=== PATIENT | female | born 1945 | race Caucasian/White ===

== ENCOUNTER 2016-06-25 11:59 | Emergency (ER) | payer MEDICARE, OTHER ==
--- NOTE | 2016-06-25 12:22 | ER Document Report ---
ED Medical Screen (RME) - General Chief Complaint: Urinary Retention Stated Complaint: URINARY SYMPTOMS Mode of Arrival: Ambulatory Information source: Patient Notes: 71-year-old female presents with complaints of nausea vomiting diarrhea generalized weakness urinary retention cough shortness of breath of a few day duration. Patient was seen at an urgent care and was sent in for evaluation. I have greeted and performed a rapid initial assessment of this patient. A comprehensive ED assessment and evaluation of the patient, analysis of test results and completion of the medical decision making process will be conducted by additional ED providers. PHYSICAL EXAMINATION: GENERAL: Well-appearing, well-nourished and in no acute distress. HEAD: Atraumatic, normocephalic. EYES: Pupils equal round extraocular movements intact, conjunctiva are normal. ENT: Nares patent NECK: Normal range of motion LUNGS: No respiratory distress Musculoskeletal: Normal range of motion NEUROLOGICAL: Normal speech, normal gait. PSYCH: Normal mood, normal affect. SKIN: Warm, Dry, normal turgor, no rashes or lesions noted. TRAVEL OUTSIDE OF THE [place] IN LAST 30 DAYS: No - Related Data Allergies/Adverse Reactions: metal Allergy (Severe, Uncoded 06/25/16 12:05) rash Past Medical History - Past Medical History Cardiac Medical History: Reports: Hx Hypercholesterolemia, Hx Hypertension - on meds Denies: Hx Coronary Artery Disease, Hx Heart Attack Pulmonary Medical History: Reports: Hx COPD - inhalers Denies: Hx Asthma, Hx Bronchitis, Hx Pneumonia Neurological Medical History: Denies: Hx Cerebrovascular Accident, Hx Seizures Renal/ Medical History: Denies: Hx Peritoneal Dialysis GI Medical History: Denies: Hx Hepatitis, Hx Hiatal Hernia, Hx Ulcer Musculoskeltal Medical History: Reports Hx Arthritis Infectious Medical History: Denies: Hx Hepatitis Past Surgical History: Denies: Hx Hysterectomy, Hx Mastectomy, Hx Open Heart Surgery - Immunizations Hx Diphtheria, Pertussis, Tetanus Vaccination: No Physical Exam - Vital signs Vitals: Temp Pulse Resp BP Pulse Ox 98.8 F 100 18 139/92 H 97 06/25/16 12:06 06/25/16 12:06 06/25/16 12:06 06/25/16 12:06 06/25/16 12:06 Course - Vital Signs Vital signs: Temp Pulse Resp BP Pulse Ox 98.8 F 100 18 139/92 H 97 06/25/16 12:06 06/25/16 12:06 06/25/16 12:06 06/25/16 12:06 06/25/16 12:06
[2016-06-25 13:02] LABS: ABSOLUTE MONOCYTES (AUTO) 0.5 10^3/uL (0.1-1.4); BASOPHILS % (AUTO) 0.2 % (0-2); EOSINOPHILS % (AUTO) 0.1 % (0-6); HEMATOCRIT 38.5 % (36.0-47.0); HGB HCT DIFFERENCE 0.5; LYMPHOCYTES % (AUTO) 15.1 % (13-45); MEAN CORPUSCULAR HEMOGLOBIN 29.2 pg (27.0-33.4); MEAN CORPUSCULAR HGB CONC 33.9 g/dL (32.0-36.0); MEAN CORPUSCULAR VOLUME 86 fl (80-97); MONOCYTES % (AUTO) 8.3 % (3-13); RED BLOOD COUNT 4.47 10^6/uL (3.72-5.28); RED CELL DISTRIBUTION WIDTH 14.8 % (11.5-14.0); SEGMENTED NEUTROPHILS % (AUTO) 76.3 % (42-78); WHITE BLOOD COUNT 6.6 10^3/uL (4.0-10.5)
--- NOTE | 2016-06-25 13:07 | ER Document Report ---
ED General - General Chief Complaint: Urinary Retention Stated Complaint: URINARY SYMPTOMS Mode of Arrival: Ambulatory Information source: Patient Notes: 71-year-old female that presents today with the onset 2 days ago of runny nose, congestion, cough, sneezing, and diarrhea. Patient states yesterday she had "a lot" of diarrhea. She cannot give me a specific number. She denies any nausea or vomiting. She denies any blood in the diarrhea. She denies any recent antibiotics, camping, trips or travel. Patient also complains of some mild sore throat and some pain in her left ear. Patient went to an urgent care and told them that she did not urinate since yesterday. She was unable to produce urine at the facility. Garsia catheter was ordered in triage. Patient denies any flank pain, history of urinary retention, or dysuria. TRAVEL OUTSIDE OF THE [place] IN LAST 30 DAYS: No - HPI Onset: Other Onset/Duration: Gradual Quality of pain: No pain Severity: Mild Pain Level: Denies Associated symptoms: Other - See above Exacerbated by: denies: Food Relieved by: Denies Similar symptoms previously: No Recently seen / treated by doctor: Yes - Related Data Allergies/Adverse Reactions: metal Allergy (Severe, Uncoded 06/25/16 12:05) rash Past Medical History - General Information source: Patient - Social History Smoking Status: Unknown if Ever Smoked Cigarette use (# per day): No Chew tobacco use (# tins/day): No Smoking Education Provided: No Frequency of alcohol use: None Drug Abuse: None Family History: Reviewed & Not Pertinent Patient has suicidal ideation: No Patient has homicidal ideation: No - Past Medical History Cardiac Medical History: Reports: Hx Hypercholesterolemia, Hx Hypertension - on meds Denies: Hx Coronary Artery Disease, Hx Heart Attack Pulmonary Medical History: Reports: Hx COPD - inhalers Denies: Hx Asthma, Hx Bronchitis, Hx Pneumonia Neurological Medical History: Denies: Hx Cerebrovascular Accident, Hx Seizures Renal/ Medical History: Denies: Hx Peritoneal Dialysis GI Medical History: Denies: Hx Hepatitis, Hx Hiatal Hernia, Hx Ulcer Musculoskeltal Medical History: Reports Hx Arthritis Infectious Medical History: Denies: Hx Hepatitis Past Surgical History: Denies: Hx Hysterectomy, Hx Mastectomy, Hx Open Heart Surgery - Immunizations Hx Diphtheria, Pertussis, Tetanus Vaccination: No Hx Pneumococcal Vaccination: 12/13/14 Review of Systems - Review of Systems Constitutional: denies: Fever EENT: Nose congestion, Nose discharge, Throat pain. denies: Eye discharge Respiratory: Cough. denies: Short of breath Gastrointestinal: Diarrhea. denies: Nausea, Vomiting Genitourinary: denies: Dysuria Musculoskeletal: denies: Leg swelling Skin: Other - no hives. denies: Rash Neurological/Psychological: Other - no slurred speech -: Yes All other systems reviewed and negative Physical Exam - Vital signs Vitals: Temp Pulse Resp BP Pulse Ox 98.8 F 100 18 139/92 H 97 06/25/16 12:06 06/25/16 12:06 06/25/16 12:06 06/25/16 12:06 06/25/16 12:06 Notes: Reviewed vital signs and nursing note as charted by RN. CONSTITUTIONAL: Alert and oriented and responds appropriately to questions. Well -appearing; well-nourished HEAD: Normocephalic; atraumatic EYES: Sclerae non-icteric ENT: Positive rhinorrhea; moist mucous membranes; pharynx minimally erythematous without any obvious peritonsillar exudate, with a midline uvula. NECK: Supple without meningismus; non-tender; no cervical lymphadenopathy, no masses CARD: Regular rate and rhythm; no murmurs, no clicks, no rubs, no gallops; symmetric distal pulses RESP: Normal chest excursion without splinting or tachypnea; breath sounds clear and equal bilaterally; no wheezes, no rhonchi, no rales ABD/GI: Normal bowel sounds; non-distended; soft, non-tender to deep palpation of all 4 quadrants of the abdomen, no rebound, no guarding; no palpable organomegaly or masses BACK: The back appears normal and is non-tender to palpation, there is no CVA tenderness EXT: Normal ROM in all joints; non-tender to palpation; no cyanosis, no effusions, no edema SKIN: Normal color for age and race; warm; dry; good turgor; capillary refill < 2 seconds; no acute lesions noted NEURO: Moves all extremities equally; Motor and sensory function intact PSYCH: The patient's mood and manner are appropriate. Grooming and personal hygiene are appropriate. Course - Re-evaluation Re-evalutation: 06/25/16 13:06 Given the history and physical examination I will order basic labs, obtain a urinalysis, obtain an x-ray of the chest and an influenza screening. Patient's lungs are clear to auscultation bilaterally. She is actually no tenderness of the objectively or subjectively to the abdomen. Patient has had no vomiting, with multiple bouts of nonbloody diarrhea that she has not taken any recent antibiotics or has not taken any travel out of the country. I believe C. difficile, acute appendicitis, abdominal obstruction, all to be extremely unlikely. 06/25/16 14:43 Chest x-ray shows normal heart, normal mediastinum, no fractures, normal lung bautista, no pneumothorax. 06/25/16 14:17 Labs as recorded. Patient still denies any and all abdominal pain. AST and ALT are slightly elevated. Normal bilirubin level. Patient does not have a gallbladder. We will provide a second liter of fluid. No obvious urinary tract infection present. Normal white blood cell count. Patient has received a second liter of fluid. Patient still denies any abdominal pain. X-ray of the chest and labs as recorded. Patient will be discharged home with strict return precautions and follow-up with primary care physician. Patient has no history of urinary obstruction and we will discontinue the Garsia catheter and try a voiding challenge. - Vital Signs Vital signs: Temp Pulse Resp BP Pulse Ox 98.8 F 100 18 139/92 H 97 06/25/16 12:06 06/25/16 12:06 06/25/16 12:06 06/25/16 12:06 06/25/16 12:06 - Laboratory Result Diagrams: 06/25/16 12:30 06/25/16 12:30 Laboratory results interpreted by me: 06/25/16 06/25/16 06/25/16 12:30 12:30 12:58 RDW 14.8 H Sodium 136.4 L Chloride 95 L AST 202 H ALT 259 H Creatine Kinase 138 H Total Protein 8.5 H Urine Protein 100 H Urine Ketones 80 H Urine Blood SMALL H Discharge - Discharge Clinical Impression: Nasal congestion, Cough Diarrhea Qualifiers: Diarrhea type: unspecified type Qualified Code(s): R19.7 - Diarrhea, unspecified Condition: Good Disposition: HOME, SELF-CARE Additional Instructions: Come back immediately for any worsening diarrhea, pain, lightheadedness, dizziness, fever, or any other acute problems. Please follow-up with your primary provider as we have discussed.
[2016-06-25 13:19] LABS: ALANINE AMINOTRANSFERASE 259 U/L (9-52); ALBUMIN 4.9 g/dL (3.5-5.0); ALKALINE PHOSPHATASE 80 U/L (38-126); ANION GAP 17 (5-19); ASPARTATE AMINO TRANSFERASE 202 U/L (14-36); BILIRUBIN,DIRECT 0.4 mg/dL (0.0-0.4); BILIRUBIN,TOTAL 0.7 mg/dL (0.2-1.3); BLOOD UREA NITROGEN 16 mg/dL (7-20); CALCIUM 9.6 mg/dL (8.4-10.2); CARBON DIOXIDE 24 mmol/L (22-30); CHLORIDE 95 mmol/L (98-107); CREATINE KINASE 138 U/L (30-135); CREATININE RESULT 0.68 mg/dL (0.52-1.25); GLUCOSE 91 mg/dL (75-110); POTASSIUM 3.7 mmol/L (3.6-5.0); SODIUM 136.4 mmol/L (137-145); TOTAL PROTEIN 8.5 g/dL (6.3-8.2)
[2016-06-25 13:21] LABS: APPEARANCE,URINE SLIGHTLY-CLOUDY; BILIRUBIN,URINE NEGATIVE (NEGATIVE); GLUCOSE, URINE NEGATIVE (NEGATIVE); KETONES,URINE 80 mg/dL (NEGATIVE); LEUKOCYTE ESTERASE,URINE NEGATIVE (NEGATIVE); NITRITE,URINE NEGATIVE (NEGATIVE); PROTEIN,URINE 100 mg/dL (NEGATIVE); URINE SPECIFIC GRAVITY 1.023; UROBILINOGEN,URINE NEGATIVE mg/dL (<2.0)
[2016-06-25 13:31] LABS: CREATINE KINASE MB 0.88 ng/mL (<4.55); TROPONIN I 0.033 ng/mL
[2016-06-25] MEDS ORDERED: NORMAL SALINE 1000 ML 1,000 ML IV ONE (14:17)
[2016-06-25 15:08] VITALS: BP 165/88
== END 2016-06-25 16:05 | disposition home or self-care (01) ==
LOC: ER 11:59
DX: R05 Cough (principal); R19.7 Diarrhea, unspecified; R09.81 Nasal congestion; R33.9 Retention of urine, unspecified; R06.7 Sneezing; J02.9 Acute pharyngitis, unspecified; H92.02 Otalgia, left ear; I10 Essential (primary) hypertension; J44.9 Chronic obstructive pulmonary disease, unspecified; J34.89 Other specified disorders of nose and nasal sinuses; R74.0 Nonspecific elevation of levels of transaminase and lactic acid dehydrogenase [LDH]; Z90.49 Acquired absence of other specified parts of digestive tract; Z91.048 Other nonmedicinal substance allergy status
CPT/HCPCS: 36415; 51702; 71020; 80053; 81001; 82550; 82553; 84484; 85025; 87070; 87804; 87880; 99283

== ENCOUNTER → 2016-07-04 | Outpatient (CLI) | payer MEDICARE, OTHER | LOC: OD 11:09 | PROVIDERS: ATTEND Obstetrics & Gynecology | DX: J18.9 Pneumonia, unspecified organism (principal); J20.9 Acute bronchitis, unspecified | CPT/HCPCS: 71020 ==

== ENCOUNTER → 2016-08-21 | Outpatient (CLI) | payer MEDICARE, OTHER ==
--- NOTE | 2016-08-21 16:02 | WOMENS IMAGING REPORT ---
EXAM DESCRIPTION: BILAT SCREENING MAMMO W/CAD COMPLETED DATE/TIME: 08/21/2016 11:34 am REASON FOR STUDY: Z12.31, ROUTINE SCREENING MAMMO Z12.31 ENCNTR SCREEN MAMMOGRAM FOR MALIGNANT NEOP LASM OF MALGORZATA COMPARISON: Multiple since 2008 TECHNIQUE: Standard craniocaudal and mediolateral oblique views of each breast recorded using [employer] l acquisition. LIMITATIONS: None. FINDINGS: Findings present which are benign by mammographic criteria. No suspicious masses, calcifi cations or architectural distortion. Pertinent benign findings: Stable benign breast nodules since 2008 Read with the assistance of CAD. .[facility] - R2 Cenova Version 1.3 .[facility] - R2 Cenova Version 1.3 .[facility] - R2 Cenova Version 2.4 .[facility] - R2 Cenova Version 2.4 .[facility] - R2 [employer] Version 9.2 Benign mammographic findings may include one or more of the following: Smooth masses, popcorn/rim/co arse calcifications, asymmetries, post-procedure changes, and lesions with long-standing stability. IMPRESSION: BENIGN MAMMOGRAPHIC FINDINGS. BIRADS 2 BREAST DENSITY: a. The breasts are almost entirely fatty. BIRAD: 2 BENIGN FINDING(S) RECOMMENDATION: ROUTINE SCREENING COMMENT: The patient has been notified of the results by letter per SA requirements. Additional no tification policies are in place for contacting patient with suspicious or incomplete findings. Quality ID #225: The [employer] recommends an annual screening mammogram for women aged 40 years or over. This facility utilizes a reminder system to ensure that all patients receive reminder letters, and/or direct phone calls for appointments. This includes reminders for routine scr eening mammograms, diagnostic mammograms, or other Breast Imaging Interventions when appropriate. Th is patient will be placed in the appropriate reminder system. The [employer] (ACR) has developed recommendations for screening MRI of the breast s in certain patient populations, to be used in conjunction with mammography. Breast MRI surveillanc e may be appropriate for women with more than 20% lifetime risk of developing breast cancer as deter mined by genetic testing, significant family history of the disease, or history of mantle radiation f or Hodgkins Disease. ACR Practice Guidelines 2008. TECHNICAL DOCUMENTATION: FINDING NUMBER: (1) ASSESSMENT: (1) JOB ID: [id number] [employer]- All Rights Reserved
== END ==
LOC: WI 11:21
PROVIDERS: ATTEND Obstetrics & Gynecology
DX: Z12.31 Encounter for screening mammogram for malignant neoplasm of breast (principal)
CPT/HCPCS: 77067; G0202

== ENCOUNTER → 2016-11-22 | Outpatient (CLI) | payer MEDICARE, OTHER ==
[2016-11-22 10:47] LABS: ABSOLUTE EOSINOPHILS # (AUTO) 0.2 10^3/uL (0.0-0.6); ABSOLUTE LYMPHOCYTES (AUTO) 1.8 10^3/uL (0.5-4.7); ABSOLUTE MONOCYTES (AUTO) 0.6 10^3/uL (0.1-1.4); ABSOLUTE NEUT (AUTO) 5.6 10^3/uL (1.7-8.2); BASOPHILS % (AUTO) 0.4 % (0-2); EOSINOPHILS % (AUTO) 1.9 % (0-6); HEMATOCRIT 27.1 % (36.0-47.0); HEMOGLOBIN 9.5 g/dL (12.0-15.5); HGB HCT DIFFERENCE 1.4; LYMPHOCYTES % (AUTO) 21.5 % (13-45); MEAN CORPUSCULAR HEMOGLOBIN 30.3 pg (27.0-33.4); MEAN CORPUSCULAR HGB CONC 35.2 g/dL (32.0-36.0); MEAN CORPUSCULAR VOLUME 86 fl (80-97); MONOCYTES % (AUTO) 7.9 % (3-13); RED BLOOD COUNT 3.15 10^6/uL (3.72-5.28); RED CELL DISTRIBUTION WIDTH 14.9 % (11.5-14.0); SEGMENTED NEUTROPHILS % (AUTO) 68.3 % (42-78); WHITE BLOOD COUNT 8.2 10^3/uL (4.0-10.5)
[2016-11-22 10:58] LABS: ALANINE AMINOTRANSFERASE 31 U/L (9-52); ALBUMIN 3.7 g/dL (3.5-5.0); ALKALINE PHOSPHATASE 83 U/L (38-126); ANION GAP 11 (5-19); ASPARTATE AMINO TRANSFERASE 24 U/L (14-36); BILIRUBIN,DIRECT 0.3 mg/dL (0.0-0.4); BILIRUBIN,TOTAL 0.4 mg/dL (0.2-1.3); BLOOD UREA NITROGEN 14 mg/dL (7-20); CALCIUM 9.6 mg/dL (8.4-10.2); CARBON DIOXIDE 26 mmol/L (22-30); CHLORIDE 97 mmol/L (98-107); GLUCOSE 83 mg/dL (75-110); POTASSIUM 4.1 mmol/L (3.6-5.0); SODIUM 133.7 mmol/L (137-145)
[2016-11-22 10:59] LABS: TOTAL PROTEIN 6.7 g/dL (6.3-8.2)
--- NOTE | 2016-11-22 12:14 | RADIOLOGY REPORT (SQ) ---
EXAM DESCRIPTION: HIP RIGHT AP/LATERAL COMPLETED DATE/TIME: 11/22/2016 10:58 am REASON FOR STUDY: PAIN IN UNSPECIFIED HIP M25.559 PAIN IN UNSPECIFIED HIP COMPARISON: None. NUMBER OF VIEWS: Two views. TECHNIQUE: AP pelvis and additional frog-leg view of the right hip. LIMITATIONS: None. FINDINGS: MINERALIZATION: Normal. RIGHT HIP: Right hip arthroplasty in good position. No acute fracture. LEFT HIP: Left hip arthroplasty in good position. No acute fracture. PUBIS AND ISCHIUM: No fracture. PELVIS: No fracture. SACRUM: No fracture or dislocation. No worrisome bone lesions. LOWER LUMBAR SPINE: Lower lumbar disc changes are present. SOFT TISSUES: No findings. OTHER: No other significant finding. IMPRESSION: Lumbar degenerative disc changes with no acute abnormality in the right hip. TECHNICAL DOCUMENTATION: JOB ID: [id number] [email or web address]- All Rights Reserved
== END ==
LOC: OD 10:07
PROVIDERS: ATTEND Obstetrics & Gynecology
DX: M25.551 Pain in right hip (principal); Z96.641 Presence of right artificial hip joint
CPT/HCPCS: 36415; 80053; 85025

== ENCOUNTER → 2017-01-16 | Outpatient (CLI) | payer MEDICARE, OTHER ==
[2017-01-16 15:28] LABS: ABSOLUTE EOSINOPHILS # (AUTO) 0.3 10^3/uL (0.0-0.6); ABSOLUTE LYMPHOCYTES (AUTO) 1.9 10^3/uL (0.5-4.7); ABSOLUTE MONOCYTES (AUTO) 0.6 10^3/uL (0.1-1.4); ABSOLUTE NEUT (AUTO) 4.4 10^3/uL (1.7-8.2); BASOPHILS % (AUTO) 0.3 % (0-2); EOSINOPHILS % (AUTO) 4.1 % (0-6); HEMOGLOBIN 11.7 g/dL (12.0-15.5); HGB HCT DIFFERENCE 1.1; LYMPHOCYTES % (AUTO) 26.4 % (13-45); MEAN CORPUSCULAR HEMOGLOBIN 28.8 pg (27.0-33.4); MEAN CORPUSCULAR HGB CONC 34.3 g/dL (32.0-36.0); MEAN CORPUSCULAR VOLUME 84 fl (80-97); MONOCYTES % (AUTO) 8.4 % (3-13); RED BLOOD COUNT 4.04 10^6/uL (3.72-5.28); RED CELL DISTRIBUTION WIDTH 15.2 % (11.5-14.0); SEGMENTED NEUTROPHILS % (AUTO) 60.8 % (42-78); WHITE BLOOD COUNT 7.3 10^3/uL (4.0-10.5)
[2017-01-16 15:50] LABS: ALANINE AMINOTRANSFERASE 30 U/L (9-52); ALKALINE PHOSPHATASE 92 U/L (38-126); ANION GAP 16 (5-19); ASPARTATE AMINO TRANSFERASE 19 U/L (14-36); BILIRUBIN,DIRECT 0.3 mg/dL (0.0-0.4); BILIRUBIN,TOTAL 0.3 mg/dL (0.2-1.3); BLOOD UREA NITROGEN 10 mg/dL (7-20); CALCIUM 9.6 mg/dL (8.4-10.2); CARBON DIOXIDE 28 mmol/L (22-30); CHLORIDE 94 mmol/L (98-107); CREATININE RESULT 0.65 mg/dL (0.52-1.25); GLUCOSE 118 mg/dL (75-110); SODIUM 137.6 mmol/L (137-145)
[2017-01-16 15:58] LABS: POTASSIUM 2.9 mmol/L (3.6-5.0)
== END ==
LOC: OD 14:48
PROVIDERS: ATTEND Obstetrics & Gynecology
DX: K52.9 Noninfective gastroenteritis and colitis, unspecified (principal)
CPT/HCPCS: 36415; 80053; 85025; 87324

== ENCOUNTER 2017-01-30 18:44 | Emergency (ER) | payer MEDICARE, OTHER ==
[2017-01-30] MEDS ORDERED: OXYCODONE-ACETAMINOPHEN 5-325 MG TABLET PO ONE (19:26)
[2017-01-30] MEDS ORDERED: DIPH/PERTUSS(ACELL)/TETANUS VAC/PF 0.5 ML SYR (>=10YO) IM ONE (19:27)
--- NOTE | 2017-01-30 19:28 | ER Document Report ---
HPI - HPI Patient complains to provider of: Hand injury Onset: This evening Onset/Duration: Sudden Quality of pain: Sharp Pain Level: 4 Context: Patient states she was walking and misstepped placing her foot off the curb causing her to fall landing on her right side. Patient states she hit her hand on the ground injuring her right hand. Patient does report abrasions to the right upper extremity. Patient denies any loss of consciousness, nausea or vomiting. Associated Symptoms: Other - Right hand pain. denies: Headache, Nausea, Vomiting Exacerbated by: Movement Relieved by: Denies Similar symptoms previously: No Recently seen / treated by doctor: No - ROS ROS below otherwise negative: Yes Systems Reviewed and Negative: Yes All other systems reviewed and negative - NEURO Neurology: DENIES: Headache, Weakness - GASTROINTESTINAL Gastrointestinal: DENIES: Nausea, Patient vomiting - MUSCULOSKELETAL Musculoskeletal: REPORTS: Extremity pain - Right hand - DERM Skin Color: Ecchymosis Skin Problems: Abrasion Past Medical History - General Information source: Patient - Social History Smoking Status: Never Smoker Frequency of alcohol use: Occasional Drug Abuse: None Lives with: Spouse/Significant other Family History: Reviewed & Not Pertinent - Past Medical History Cardiac Medical History: Reports: Hx Hypercholesterolemia, Hx Hypertension - on meds Denies: Hx Coronary Artery Disease, Hx Heart Attack Pulmonary Medical History: Reports: Hx COPD - inhalers Denies: Hx Asthma, Hx Bronchitis, Hx Pneumonia Neurological Medical History: Denies: Hx Cerebrovascular Accident, Hx Seizures Renal/ Medical History: Denies: Hx Peritoneal Dialysis GI Medical History: Denies: Hx Hepatitis, Hx Hiatal Hernia, Hx Ulcer Musculoskeltal Medical History: Reports Hx Arthritis Infectious Medical History: Denies: Hx Hepatitis Past Surgical History: Reports: Hx Orthopedic Surgery. Denies: Hx Hysterectomy , Hx Mastectomy, Hx Open Heart Surgery - Immunizations Hx Diphtheria, Pertussis, Tetanus Vaccination: No Hx Pneumococcal Vaccination: 12/13/14 Vertical Provider Document - CONSTITUTIONAL Agree With Documented VS: Yes Exam Limitations: No Limitations General Appearance: WD/WN, No Apparent Distress - INFECTION CONTROL TRAVEL OUTSIDE OF THE [place] IN LAST 30 DAYS: No - HEENT HEENT: Atraumatic, Normal ENT Exam, Normocephalic, PERRLA - NECK Neck: Normal Inspection, Supple Notes: No posterior cervical tenderness - RESPIRATORY Respiratory: Breath Sounds Normal, No Respiratory Distress O2 Sat by Pulse Oximetry: 100 - CARDIOVASCULAR Cardiovascular: Regular Rate, Regular Rhythm Pulses: Normal: Radial, Dorsalis pedis - MUSCULOSKELETAL/EXTREMETIES Musculoskeletal/Extremeties: MAEW, Tender - Right hand tenderness over right second through fifth metacarpal, no obvious edema or deformity, Eccymosis - Ecchymosis to posterior aspect of right forearm and right humerus with overlying abrasion - NEURO Level of Consciousness: Awake, Alert, Appropriate Motor/Sensory: No Motor Deficit - DERM Integumentary: Warm, Dry Course - Vital Signs Vital signs: Temp Pulse Resp BP Pulse Ox 99.0 F 78 20 147/87 H 100 01/30/17 19:01 01/30/17 19:01 01/30/17 19:01 01/30/17 19:01 01/30/17 19:01 - Diagnostic Test Radiology reviewed: Image reviewed, Reports reviewed Procedures - Immobilization Right Hand Pre-Proc Neuro Vasc Exam: Normal Immobilizer type: Other - corey Performed by: PCT Post-Proc Neuro Vasc Exam: Normal Alignment checked and good: Yes Discharge - Discharge Clinical Impression: Elevated blood pressure reading, Abrasion Fracture, metacarpal Qualifiers: Encounter type: initial encounter Metacarpal bone: unspecified metacarpal Fracture type: closed Metacarpal location: unspecified portion of metacarpal Fracture morphology: unspecified fracture morphology Qualified Code(s): S62.309A - Unspecified fracture of unspecified metacarpal bone, initial encounter for closed fracture Condition: Stable Disposition: HOME, SELF-CARE Instructions: Abrasions ([facility]), Fractured Metacarpal ([facility]), Ice & Elevation ([facility] ), Splint Precautions ([facility]), Tetanus Immunization Given ([facility]) Additional Instructions: Return immediately for any new or worsening symptoms Followup with your primary care provider, call tomorrow to make a followup appointment Follow-up with orthopedic hand specialist for further evaluation, call tomorrow for an appointment Take your pain medication that you have at home as prescribed Forms: Elevated Blood Pressure Referrals: PALAK PUENTE MD [Primary Care Provider] - Follow up as needed BRITTNEY MEDEIROS DO [ACTIVE STAFF] - Follow up in 3-5 days
--- NOTE | 2017-01-30 20:03 | RADIOLOGY REPORT (SQ) ---
EXAM DESCRIPTION: HAND RIGHT 3 VIEWS COMPLETED DATE/TIME: 01/30/2017 7:40 pm REASON FOR STUDY: FOOSH COMPARISON: None. EXAM PARAMETERS: NUMBER OF VIEWS: Three views. TECHNIQUE: AP, lateral and oblique radiographic images acquired of the right hand. LIMITATIONS: None. FINDINGS: MINERALIZATION: Osteopenia. BONES: Mildly displaced oblique fractures through the 3rd and 4th metacarpals. Bones otherwise appea r to be intact. JOINTS: Osteoarthritis most severely affecting the 1st CMC joint. No apparent dislocation. SOFT TISSUES: Associated soft tissue swelling. Chondrocalcinosis TFCC. OTHER: No other significant finding. IMPRESSION: 3RD AND 4TH METACARPAL FRACTURES WITH ASSOCIATED SOFT TISSUE SWELLING. ADDITIONAL CHRONIC CHANGES ABOVE. TECHNICAL DOCUMENTATION: JOB ID: [id number] [employer]- All Rights Reserved
[2017-01-30 21:13] VITALS: BP 134/86
== END 2017-01-30 21:09 | disposition home or self-care (01) ==
LOC: ER 18:44
PROC: 2W3CX1Z Immobilization of Right Lower Arm using Splint (ICD-10-PCS; principal; 2017-01-30)
DX: S62.309A Unspecified fracture of unspecified metacarpal bone, initial encounter for closed fracture (principal); S40.811A Abrasion of right upper arm, initial encounter; R03.0 Elevated blood-pressure reading, without diagnosis of hypertension; X58.XXXA Exposure to other specified factors, initial encounter
CPT/HCPCS: 99283; 90471; 73130; 90715; 29125; A9270

== ENCOUNTER 2017-12-24 08:45 | Day surgery (SDC) | payer MEDICARE, OTHER ==
[~2017-12-24 08:45] MED LIST: KETOROLAC TROMETHAMINE 0.45% 4 DROP/0.4 ML DROPERETTE OS PRN; LIDOCAINE 4% INJ/PF (40 MG/ML) 5 ML AMPUL OS PRN
[2017-12-24] MEDS: TETRACAINE HCL 0.5% OPH SOLN 0.6 ML DROPERETTE OS PRN ×3 (09:44→10:24)
[2017-12-24] MEDS: TROPICAMIDE 1% OPH SOLN 3 ML OS PRN ×3 (09:45→10:08)
[2017-12-24] MEDS: CYCLOPENTOLATE 0.2%/PHENYLEPHRINE 1% OPH SOLN 2 ML OS PRN ×3 (09:45→10:08)
[2017-12-24] MEDS: BESIFLOXACIN HCL 0.6% OPH SUSP 5 ML BOTTLE OS PRN ×4 (09:46→10:42)
[2017-12-24] MEDS ORDERED: EPINEPHRINE INJ/PF 1 MG/1 ML AMPULE ONE (09:48)
[2017-12-24] MEDS ORDERED: CHONDR SU A NA/HYALUR INTRAOC KIT (SURGICARE) ONE (09:49)
[2017-12-24] MEDS ORDERED: LIDOCAINE 1% INJ-PF (10 MG/ML) 30 ML SDV ONE (09:49)
[2017-12-24] MEDS ORDERED: FENTANYL CITRATE INJ/PF 100 MCG/2 ML AMPUL ONE (10:01)
[2017-12-24] MEDS ORDERED: MIDAZOLAM 2 MG/2 ML INJ ONE (10:01)
[2017-12-24] MEDS: TOBRAMYCIN SULFATE/DEXAMETH OPH OINTMENT 3.5 GM ONE ×2 (10:32→10:42)
== END 2017-12-24 11:25 | disposition home or self-care (01) ==
LOC: SC 08:45
PROVIDERS: ATTEND Ophthalmology
DX: H25.12 Age-related nuclear cataract, left eye (principal); J44.9 Chronic obstructive pulmonary disease, unspecified; E78.00 Pure hypercholesterolemia, unspecified; K21.9 Gastro-esophageal reflux disease without esophagitis; M19.90 Unspecified osteoarthritis, unspecified site; Z96.643 Presence of artificial hip joint, bilateral; Z96.651 Presence of right artificial knee joint; Z79.1 Long term (current) use of non-steroidal anti-inflammatories (NSAID); Z79.51 Long term (current) use of inhaled steroids; Z79.899 Other long term (current) drug therapy; Z87.891 Personal history of nicotine dependence
CPT/HCPCS: 66984; V2630; J2250; J3490 ×3; A9270; J0171; J3010; 142

== ENCOUNTER 2018-01-07 06:46 | Day surgery (SDC) | payer MEDICARE, OTHER ==
[~2018-01-07 06:46] MED LIST changes: +KETOROLAC TROMETHAMINE 0.45% 4 DROP/0.4 ML DROPERETTE OD PRN; -KETOROLAC TROMETHAMINE 0.45% 4 DROP/0.4 ML DROPERETTE OS PRN; -LIDOCAINE 4% INJ/PF (40 MG/ML) 5 ML AMPUL OS PRN
[2018-01-07] MEDS: TETRACAINE HCL 0.5% OPH SOLN 0.6 ML DROPERETTE OD PRN ×4 (07:00→07:43)
[2018-01-07] MEDS: TROPICAMIDE 1% OPH SOLN 3 ML OD PRN ×3 (07:01→07:23)
[2018-01-07] MEDS: CYCLOPENTOLATE 0.2%/PHENYLEPHRINE 1% OPH SOLN 2 ML OD PRN ×3 (07:01→07:23)
[2018-01-07] MEDS: BESIFLOXACIN HCL 0.6% OPH SUSP 5 ML BOTTLE OD PRN ×4 (07:01→08:10)
[2018-01-07] MEDS ORDERED: MIDAZOLAM 2 MG/2 ML INJ ONE (07:20)
[2018-01-07] MEDS: CHONDR SU A NA/HYALUR INTRAOC KIT (SURGICARE) ONE ×2 (07:57)
[2018-01-07] MEDS: LIDOCAINE 1% INJ-PF (10 MG/ML) 30 ML SDV ONE ×2 (07:57)
[2018-01-07] MEDS: EPINEPHRINE INJ/PF 1 MG/1 ML AMPULE ONE ×2 (07:57)
[2018-01-07] MEDS: TOBRAMYCIN SULFATE/DEXAMETH OPH OINTMENT 3.5 GM ONE ×2 (08:10)
== END 2018-01-07 08:41 | disposition home or self-care (01) ==
LOC: SC 06:46
PROVIDERS: ATTEND Ophthalmology
DX: H25.11 Age-related nuclear cataract, right eye (principal); Z98.42 Cataract extraction status, left eye; J44.9 Chronic obstructive pulmonary disease, unspecified; K21.9 Gastro-esophageal reflux disease without esophagitis; E78.00 Pure hypercholesterolemia, unspecified; M19.90 Unspecified osteoarthritis, unspecified site; Z96.643 Presence of artificial hip joint, bilateral; Z96.651 Presence of right artificial knee joint; Z79.51 Long term (current) use of inhaled steroids; Z79.899 Other long term (current) drug therapy; Z79.1 Long term (current) use of non-steroidal anti-inflammatories (NSAID)
CPT/HCPCS: 66984; V2630; J2250; J3490 ×3; A9270; J0171; 142

== ENCOUNTER → 2018-06-26 | Outpatient (CLI) | payer MEDICARE, OTHER ==
--- NOTE | 2018-06-26 15:25 | RADIOLOGY REPORT (SQ) ---
EXAM DESCRIPTION: SMALL BOWEL SERIES COMPLETED DATE/TIME: 06/26/2018 10:50 am REASON FOR STUDY: ANEMIA UNSPEC (D64.9) D64.9 ANEMIA, UNSPECIFIED COMPARISON: None. FLUOROSCOPY TIME: 2.8 minutes 4 images saved to PACS. LIMITATIONS: None. PROCEDURE: Initial laboratory miller image of abdomen acquired, followed by administration of oral contrast. Se rial radiographic images acquired. Fluoroscopic images recorded of the terminal ileum and other yessy cated areas. All images stored on PACS. FINDINGS: GRAVITY PROSPECTING OBSERVER KUB: Non-obstructive bowel pattern. No abnormal calcifications. Soft tissue planes normal. STOMACH: No significant reflux. Normal distention without abnormality. DUODENUM: Normal mucosal pattern with adequate distention. No displacement or obstruction. JEJUNUM: Normal mucosal pattern. No dilatation, segmentation, strictures or masses. ILEUM: Normal mucosal pattern. No dilatation, segmentation, strictures or masses. TERMINAL ILEUM AND ILEO-CECAL VALVE: Normal mucosal pattern without "cobble-stoning" or stricture. N ormal compression. PROXIMAL COLON: Incompletely imaged. No abnormality. OTHER: Rapid small bowel transit time, with barium seen in the colon on the 15 minute image. IMPRESSION: RAPID SMALL BOWEL TRANSIT TIME, ABOVE. OTHERWISE UNREMARKABLE STUDY. COMMENT: None Quality ID [id number]: Final reports for procedures using fluoroscopy that document radiation exposure yessy roman, or exposure time and number of fluorographic images (if radiation exposure indices are not avail able) TECHNICAL DOCUMENTATION: JOB ID: [id number] [email or web address]- All Rights Reserved Reading location - IP/workstation name: [email or web address] [id number]
== END ==
LOC: RAD 08:41
PROVIDERS: ATTEND Internal Medicine Gastroenterology
DX: D64.9 Anemia, unspecified (principal)
CPT/HCPCS: 74250

== ENCOUNTER 2018-07-09 09:14 | Emergency (ER) | payer MEDICARE, OTHER ==
[2018-07-09] MEDS ORDERED: ACETAMINOPHEN 325 MG TABLET PO ONE (11:21)
--- NOTE | 2018-07-09 11:24 | ER Document Report ---
ED Medical Screen (RME) - General Chief Complaint: Blood Pressure Problem Stated Complaint: BLOOD PRESSURE ISSUE Time Seen by Provider: 07/09/18 11:21 Primary Care Provider: THI GALDAMEZ MD [Primary Care Provider] - Follow up as needed Mode of Arrival: Wheelchair Information source: Patient Notes: Patient presents complaining of headache that started yesterday. Patient has been monitoring her blood pressure recently and has noted that it has been elevated. Patient reports a previous history of hypertension but states that her blood pressure had come down and she had been off blood pressure medicines for some time. Patient denies any chest pain shortness of breath. Patient does report a history of brain aneurysm that she does not feel is operable. hx: COPD, ankylosing spondylitis, aneurysm I have greeted and performed a rapid initial assessment of this patient. A comprehensive ED assessment and evaluation of the patient, analysis of test results and completion of the medical decision making process will be conducted by additional ED providers. TRAVEL OUTSIDE OF THE [place] IN LAST 30 DAYS: No - Related Data Allergies/Adverse Reactions: acetaminophen [From Vicodin] Allergy (Verified 07/09/18 09:15) Migraine hydrocodone [From Vicodin] Allergy (Verified 07/09/18 09:15) Migraine No Known Drug Allergies Allergy (Verified 01/30/17 19:28) oxycodone Allergy (Verified 07/09/18 09:15) metal Allergy (Severe, Uncoded 07/09/18 09:15) rash Past Medical History - Past Medical History Cardiac Medical History: Reports: Hx Hypercholesterolemia, Hx Hypertension - NO MEDS Denies: Hx Coronary Artery Disease, Hx Heart Attack Pulmonary Medical History: Reports: Hx COPD - inhalers Denies: Hx Asthma, Hx Bronchitis, Hx Pneumonia Neurological Medical History: Denies: Hx Cerebrovascular Accident, Hx Seizures Renal/ Medical History: Denies: Hx Peritoneal Dialysis GI Medical History: Reports: Hx Hiatal Hernia. Denies: Hx Hepatitis, Hx Ulcer Musculoskeltal Medical History: Reports Hx Arthritis Infectious Medical History: Denies: Hx Hepatitis Past Surgical History: Reports: Hx Orthopedic Surgery. Denies: Hx Hysterectomy, Hx Mastectomy, Hx Open Heart Surgery, Hx Pacemaker - Immunizations Hx Diphtheria, Pertussis, Tetanus Vaccination: No Physical Exam - Vital signs Vitals: Temp Pulse Resp BP Pulse Ox 98.3 F 81 18 152/97 H 98 07/09/18 09:20 07/09/18 09:20 07/09/18 09:20 07/09/18 09:20 07/09/18 09:20 - Neurological Orientation: AAOx4 Jake Coma Scale Eye Opening: Spontaneous Steger Coma Scale Verbal: Oriented Jake Coma Scale Motor: Obeys Commands Jake Coma Scale Total: 15 Course - Vital Signs Vital signs: Temp Pulse Resp BP Pulse Ox 98.3 F 81 18 152/97 H 98 07/09/18 09:20 07/09/18 09:20 07/09/18 09:20 07/09/18 09:20 07/09/18 09:20 Doctor's Discharge - Discharge Referrals: THI GALDAMEZ MD [Primary Care Provider] - Follow up as needed
[2018-07-09 12:02] LABS: ABSOLUTE EOSINOPHILS # (AUTO) 0.2 10^3/uL (0.0-0.6); ABSOLUTE LYMPHOCYTES (AUTO) 2.6 10^3/uL (0.5-4.7); ABSOLUTE MONOCYTES (AUTO) 0.7 10^3/uL (0.1-1.4); ABSOLUTE NEUT (AUTO) 5.7 10^3/uL (1.7-8.2); BASOPHILS % (AUTO) 0.4 % (0-2); HEMATOCRIT 38.2 % (36.0-47.0); HEMOGLOBIN 12.8 g/dL (12.0-15.5); MEAN CORPUSCULAR HEMOGLOBIN 29.3 pg (27.0-33.4); MEAN CORPUSCULAR HGB CONC 33.4 g/dL (32.0-36.0); MEAN CORPUSCULAR VOLUME 88 fl (80-97); MONOCYTES % (AUTO) 7.6 % (3-13); PLATELET COUNT 271 10^3/uL (150-450); RED BLOOD COUNT 4.35 10^6/uL (3.72-5.28); RED CELL DISTRIBUTION WIDTH 15.3 % (11.5-14.0); TOTAL CELLS COUNTED % (AUTO) 100 %; WHITE BLOOD COUNT 9.1 10^3/uL (4.0-10.5)
--- NOTE | 2018-07-09 12:28 | RADIOLOGY REPORT (SQ) ---
EXAM DESCRIPTION: CT HEAD WITHOUT COMPLETED DATE/TIME: 07/09/2018 12:16 pm REASON FOR STUDY: RONQUILLO, elev BP, Hx aneurysm COMPARISON: MR 10/03/2011 CT 10/03/2011 TECHNIQUE: Axial images acquired through the brain without intravenous contrast. Images reviewed wi th bone, brain and subdural windows. Additional sagittal and coronal reconstructions were generated. Images stored on PACS. All CT scanners at this facility use dose modulation, iterative reconstruction, and/or weight based d osing when appropriate to reduce radiation dose to as low as reasonably achievable (ALARA). [facility]: Dose Right [facility]: CareDose [facility]: Dose Right [facility]: Teradose 4D [facility]: Smart Gojimo RADIATION DOSE: CT Rad equipment meets quality standard of care and radiation dose reduction techniq ues were employed. CTDIvol: 53.2 mGy. DLP: 1044 mGy-cm. mGy. LIMITATIONS: None. FINDINGS: VENTRICLES: Normal size and contour. CEREBRUM: Mild frontal cortical atrophy. No masses. No hemorrhage. No midline shift. No evidence for acute infarction. Normal cyr/white matter differentiation. No areas of low density in the white matter. CEREBELLUM: No masses. No hemorrhage. No alteration of density. No evidence for acute infarction. EXTRAAXIAL SPACES: No fluid collections. No masses. ORBITS AND GLOBE: No intra- or extraconal masses. Normal contour of globe without masses. CALVARIUM: No fracture. PARANASAL SINUSES: No fluid or mucosal thickening. SOFT TISSUES: No mass or hematoma. OTHER: No other significant finding. IMPRESSION: Mild involutional changes with no acute intracranial imaging findings. EVIDENCE OF ACUTE STROKE: NO. COMMENT: Quality ID # [id number]: Final reports with documentation of one or more dose reduction techniques (e.g., Automated exposure control, adjustment of the mA and/or kV according to patient size, use of iterative reconstruction technique) TECHNICAL DOCUMENTATION: JOB ID: [id number] [employer]- All Rights Reserved Reading location - IP/workstation name: [email or web address]
[2018-07-09 12:44] LABS: ALANINE AMINOTRANSFERASE 29 U/L (9-52); ALBUMIN 4.2 g/dL (3.5-5.0); ALKALINE PHOSPHATASE 72 U/L (38-126); ANION GAP 11 (5-19); ASPARTATE AMINO TRANSFERASE 19 U/L (14-36); BILIRUBIN,DIRECT 0.2 mg/dL (0.0-0.4); BILIRUBIN,TOTAL 0.4 mg/dL (0.2-1.3); BLOOD UREA NITROGEN 18 mg/dL (7-20); CALCIUM 9.7 mg/dL (8.4-10.2); CARBON DIOXIDE 30 mmol/L (22-30); CHLORIDE 97 mmol/L (98-107); GLUCOSE 80 mg/dL (75-110); POTASSIUM 3.6 mmol/L (3.6-5.0); SODIUM 138.1 mmol/L (137-145); TOTAL PROTEIN 7.1 g/dL (6.3-8.2)
--- NOTE | 2018-07-09 15:55 | RADIOLOGY REPORT (SQ) ---
EXAM DESCRIPTION: CTA HEAD COMPLETED DATE/TIME: 07/09/2018 3:22 pm REASON FOR STUDY: RONQUILLO, hx aneurysm and elevated blood pressure COMPARISON: MRA 10/03/2011 TECHNIQUE: Post IV contrast scanning, thin section axial imaging through the brain to evaluate the a rterial structures. Source and MIP images are saved and reviewed on PACS. Advanced 3D imaging as volume-rendering, MIPs, SSD performed? yes All CT scanners at this facility use dose modulation, iterative reconstruction, and/or weight based d osing when appropriate to reduce radiation dose to as low as reasonably achievable (ALARA). [facility]: Dose Right [facility]: CareDose [facility]: Dose Right [facility]: Teradose 4D [facility]: Talent Flush CONTRAST TYPE AND DOSE: contrast/concentration: Isovue 350.00 mg/ml; Total Contrast Delivered: 70.0 ml; Total Saline Delivered: 66.0 ml RENAL FUNCTION: GFR > 60. LIMITATIONS: None. FINDINGS: [place]: The anterior, middle, posterior cerebral arteries are all patent. Simil ar aneurysmal dilatation of the right supraclinoid internal carotid artery, there is possibly a new 2 mm aneurysm on its posterior -medial wall, this is difficult to exclude given differences in techniq ue compared with the 2011 MRA examination. POSTERIOR CIRCULATION: The distal vertebral arteries are patent as is the basilar artery. No aneurysm . BRAIN: No gross enhancing lesions as visualized. The superior cerebral hemispheres are not included in the field of view. BONES: Intact as visualized. SINUSES: No fluid or mucosal thickening. OTHER: No other significant finding. IMPRESSION: Similar aneurysmal dilatation of the right supraclinoid internal carotid artery, there i s possibly a new 2 mm aneurysm on its posterior -medial wall, this is difficult to exclude given diff erences in technique compared with the 2011 MRA examination. TECHNICAL DOCUMENTATION: JOB ID: [id number] Quality ID # [id number]: Final reports with documentation of one or more dose reduction techniques (e.g., Au tomated exposure control, adjustment of the mA and/or kV according to patient size, use of iterative reconstruction technique) 2010 [employer]- All Rights Reserved Reading location - IP/workstation name: [email or web address]
--- NOTE | 2018-07-09 18:03 | ER Document Report ---
ED Headache - General Chief Complaint: Blood Pressure Problem Stated Complaint: BLOOD PRESSURE ISSUE Time Seen by Provider: 07/09/18 11:21 Primary Care Provider: THI GALDAMEZ MD [NO LOCAL MD] - Follow up as needed Mode of Arrival: Wheelchair Information source: Patient TRAVEL OUTSIDE OF THE [place] IN LAST 30 DAYS: No - HPI Patient complains to provider of: Headache Notes: Patient here with complaints of headache and elevated blood pressure. The patient is a 73-year-old female has a prior history of hypertension. She was on antihypertensive medications but was taken off of them due to low blood pressure in the past. 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 She was seen at her doctor's office today for some intermittent headaches and elevated blood pressure with systolics in the 170s and was sent here for evaluation. She states the headache is been intermittent for the last 2 days. It was not sudden onset, thunderclap in nature. She denies any numbness, tingli ng, weakness. She denies any chest pain or shortness of breath. She is not on blood thinning medications. No fever. No neck stiffness. No head injury. She denies any blurred or loss vision. She took some Tylenol earlier today states that the headache is somewhat better. This is not the worst headache of her life. She denies any photophobia. She denies any other complaints at this moment. - Related Data Allergies/Adverse Reactions: acetaminophen [From Vicodin] Allergy (Verified 07/09/18 09:15) Migraine hydrocodone [From Vicodin] Allergy (Verified 07/09/18 09:15) Migraine No Known Drug Allergies Allergy (Verified 01/30/17 19:28) oxycodone Allergy (Verified 07/09/18 09:15) metal Allergy (Severe, Uncoded 07/09/18 09:15) rash Past Medical History - General Information source: Patient - Social History Smoking Status: Former Smoker Chew tobacco use (# tins/day): No Frequency of alcohol use: None Drug Abuse: None Family History: Reviewed & Not Pertinent Patient has suicidal ideation: No Patient has homicidal ideation: No - Past Medical History Cardiac Medical History: Reports: Hx Hypercholesterolemia, Hx Hypertension - NO MEDS Denies: Hx Coronary Artery Disease, Hx Heart Attack Pulmonary Medical History: Reports: Hx COPD - inhalers Denies: Hx Asthma, Hx Bronchitis, Hx Pneumonia Neurological Medical History: Denies: Hx Cerebrovascular Accident, Hx Seizures Renal/ Medical History: Denies: Hx Peritoneal Dialysis GI Medical History: Reports: Hx Hiatal Hernia. Denies: Hx Hepatitis, Hx Ulcer Musculoskeletal Medical History: Reports Hx Arthritis Infectious Medical History: Denies: Hx Hepatitis Past Surgical History: Reports: Hx Orthopedic Surgery. Denies: Hx Hysterectomy, Hx Mastectomy, Hx Open Heart Surgery, Hx Pacemaker - Immunizations Hx Diphtheria, Pertussis, Tetanus Vaccination: No Hx Pneumococcal Vaccination: 12/13/14 Review of Systems - Review of Systems -: Yes All other systems reviewed and negative Physical Exam - Vital signs Vitals: Temp Pulse Resp BP Pulse Ox 98.3 F 81 18 152/97 H 98 07/09/18 09:20 07/09/18 09:20 07/09/18 09:20 07/09/18 09:20 07/09/18 09:20 - Notes Notes: GENERAL: alert, cooperative, nontoxic, no distress. HEAD: normocephalic, atraumatic EYES: conjunctiva pink without discharge, no external redness or swelling. Pupils are equal, round, reactive to light. EARS: no external swelling, no external redness NOSE: atraumatic, no external swelling MOUTH/THROAT: mucous membranes moist and pink, posterior pharynx without erythema, swelling, exudate. No trismus or drooling. NECK: soft, supple, full range of motion, no meningismus. CHEST: no distress, lungs clear and equal throughout. No wheezing, rales, rhonchi. CARDIAC: regular rate and rhythm, no murmur, normal capillary refill, normal pulses. No peripheral edema noted. BACK: full range of motion, no CVA tenderness. EXTREMITIES: full range of motion of all extremities. No redness, no swelling. NEURO: alert and oriented x 3, cranial nerves II through XII are grossly intact. Upper and lower extremities are equal throughout. Normal sensation. No focal deficits, full range of motion of all extremities. normal finger to nose. NIH stroke score of 0. PYSCH: appropriate mood, affect. Patient is cooperative. SKIN: pink, warm, dry, no rash. Course - Re-evaluation Re-evalutation: 07/09/18 18:00 Patient is nontoxic-appearing with stable vitals. Patient here with complaints of headache and elevated blood pressure. Patient states that she has a history of a right internal carotid aneurysm and was noted to have elevated blood pressure at her doctor's office today so she was sent in for evaluation. She is a previous history of hypertension and was on antihypertensives, we took her off of these due to hypotension in the past. She cannot rule out medication she was taken. States she has had an intermittent headache for the last 2 days and due to her elevated blood pressure and known aneurysm she was sent in for evaluation. She denies this being sudden onset in nature. No neurological complaints to go along with her headache. She has a nonfocal neurological exam. CT of the brain is unremarkable. CTA of the brain shows no change in the known right internal carotid artery. Possibly a new 2 mm aneurysm on his posterior medial wall but difficult to tell for sure due to differences in technique as she had an MRA in the past. Did discuss this with the patient. The patient states that she feels great at this time. Her blood pressure when she was here initially was 152/97. She denies any chest pain or shortness of breath. Headache was not sudden onset, thunderclap I have a low suspicion for sub arachnoid hemorrhage. No signs of meningitis. Patient states she is feeling much better and is ready to go home at this time. Patient will be discharged home with instructions to follow-up with her primary care doctor at the next available appointment. Follow-up sooner first sudden severe headache, blurred or loss vision, numbness, tingling, weakness, chest pain shortness of breath, or for any further concerns. The patient's emergency department workup and current diagnosis were explained t o the patient and or family. Follow-up instructions were provided. Medications if prescribed were discussed. Instructions for when to return to the emergency department including specific worrisome symptoms were discussed with the patient and/or family. - Vital Signs Vital signs: Temp Pulse Resp BP Pulse Ox 98.3 F 81 18 152/97 H 98 07/09/18 09:20 07/09/18 09:20 07/09/18 09:20 07/09/18 09:20 07/09/18 09:20 - Laboratory Result Diagrams: 07/09/18 11:35 07/09/18 11:35 Laboratory results interpreted by me: 07/09/18 07/09/18 11:35 11:35 RDW 15.3 H Chloride 97 L - Diagnostic Test Radiology reviewed: Image reviewed, Reports reviewed - CT head with no acute findings. CTA head shows no change in the known internal carotid artery aneurysm with possible new 2 mm aneurysm on the posterior/medial wall difficult to completely determine due to differences in technique. Discharge - Discharge Clinical Impression: Aneurysm Headache Qualifiers: Headache type: unspecified Headache chronicity pattern: unspecified pattern Intractability: not intractable Qualified Code(s): R51 - Headache Condition: Stable Disposition: HOME, SELF-CARE Instructions: Headache ([facility]) Additional Instructions: Take medication as needed for headache. Follow-up with your primary care doctor at the next available appointment for evaluation. Last return the emergency department immediately for worsening pain, high fever, sudden onset headache, numbness, tingling, weakness, chest pain or shortness of breath, persistent vomiting, or for any further concerns. Forms: Elevated Blood Pressure, Smoking Cessation Education Referrals: THI GALDAMEZ MD [NO LOCAL MD] - Follow up as needed
[2018-07-09 18:41] VITALS: BP 138/77
== END 2018-07-09 18:52 | disposition home or self-care (01) ==
LOC: ER 09:14
DX: I67.1 Cerebral aneurysm, nonruptured (principal); I10 Essential (primary) hypertension; R51 Headache; J44.9 Chronic obstructive pulmonary disease, unspecified; Z88.5 Allergy status to narcotic agent; Z88.6 Allergy status to analgesic agent; Z91.048 Other nonmedicinal substance allergy status; Z87.891 Personal history of nicotine dependence
CPT/HCPCS: 99284; 36415; 85025; 80053; 70450; 70496; A9270

== ENCOUNTER 2018-09-19 12:01 | Inpatient (IN) | payer MEDICARE, OTHER ==
[2018-09-19 12:52] LABS: ABSOLUTE EOSINOPHILS # (AUTO) 0.1 10^3/uL (0.0-0.6); ABSOLUTE LYMPHOCYTES (AUTO) 1.1 10^3/uL (0.5-4.7); ABSOLUTE MONOCYTES (AUTO) 0.9 10^3/uL (0.1-1.4); ABSOLUTE NEUT (AUTO) 17.1 10^3/uL (1.7-8.2); BASOPHILS % (AUTO) 0.1 % (0-2); EOSINOPHILS % (AUTO) 0.5 % (0-6); HEMATOCRIT 31.8 % (36.0-47.0); HEMOGLOBIN 10.7 g/dL (12.0-15.5); LYMPHOCYTES % (AUTO) 5.8 % (13-45); MEAN CORPUSCULAR HEMOGLOBIN 29.7 pg (27.0-33.4); MEAN CORPUSCULAR HGB CONC 33.7 g/dL (32.0-36.0); MEAN CORPUSCULAR VOLUME 88 fl (80-97); MONOCYTES % (AUTO) 4.5 % (3-13); PLATELET COUNT 182 10^3/uL (150-450); RED CELL DISTRIBUTION WIDTH 15.1 % (11.5-14.0); SEGMENTED NEUTROPHILS % (AUTO) 89.1 % (42-78); TOTAL CELLS COUNTED % (AUTO) 100 %; WHITE BLOOD COUNT 19.1 10^3/uL (4.0-10.5)
[2018-09-19 13:08] LABS: ALANINE AMINOTRANSFERASE 23 U/L (9-52); ALBUMIN 3.5 g/dL (3.5-5.0); ALKALINE PHOSPHATASE 86 U/L (38-126); ANION GAP 11 (5-19); ASPARTATE AMINO TRANSFERASE 25 U/L (14-36); BILIRUBIN,DIRECT 0.3 mg/dL (0.0-0.4); BILIRUBIN,TOTAL 0.9 mg/dL (0.2-1.3); BLOOD UREA NITROGEN 13 mg/dL (7-20); CALCIUM 8.8 mg/dL (8.4-10.2); CARBON DIOXIDE 25 mmol/L (22-30); CHLORIDE 96 mmol/L (98-107); GLUCOSE 98 mg/dL (75-110); SODIUM 132.1 mmol/L (137-145); TOTAL PROTEIN 6.2 g/dL (6.3-8.2)
[2018-09-19 13:13] LABS: POTASSIUM 2.8 mmol/L (3.6-5.0)
[2018-09-19] MEDS ORDERED: NORMAL SALINE 1000 ML 1,000 ML IV PRN (13:23)
[2018-09-19 14:11] LABS: APPEARANCE,URINE CLEAR; BILIRUBIN,URINE NEGATIVE (NEGATIVE); COLOR,URINE YELLOW; GLUCOSE, URINE NEGATIVE (NEGATIVE); KETONES,URINE 80 mg/dL (NEGATIVE); LEUKOCYTE ESTERASE,URINE NEGATIVE (NEGATIVE); NITRITE,URINE NEGATIVE (NEGATIVE); PROTEIN,URINE 30 mg/dL (NEGATIVE); URINE SPECIFIC GRAVITY 1.013; UROBILINOGEN,URINE NEGATIVE mg/dL (<2.0)
[2018-09-19] MEDS ORDERED: CEFTRIAXONE 1 GM/D5W RTU 1 GM/50 ML RTUPB IV ONE (14:28)
--- NOTE | 2018-09-19 14:57 | RADIOLOGY REPORT (SQ) ---
EXAM DESCRIPTION: CHEST 2 VIEWS COMPLETED DATE/TIME: 09/19/2018 2:46 pm REASON FOR STUDY: Cough, congestion, phlegm, fever. COMPARISON: 06/25/2016 EXAM PARAMETERS: NUMBER OF VIEWS: two views TECHNIQUE: Digital Frontal and Lateral radiographic views of the chest acquired. RADIATION DOSE: NA LIMITATIONS: none FINDINGS: LUNGS AND PLEURA: There is a large heterogeneous opacity and probable small pleural effusi on of the left lung base, best seen on lateral view. MEDIASTINUM AND HILAR STRUCTURES: No masses or contour abnormalities. HEART AND VASCULAR STRUCTURES: Heart normal size. No evidence for failure. BONES: No acute findings. HARDWARE: None in the chest. OTHER: No other significant finding. IMPRESSION: There is a large heterogeneous opacity and probable small pleural effusion of the left l loretta base, best seen on lateral view. Findings are concerning for infection or aspiration. Underlyin g mass is not excluded. Recommend follow-up radiographs in 6 to 8 weeks to ensure complete resolutio n, or alternately further evaluation by CT. TECHNICAL DOCUMENTATION: JOB ID: [id number] [employer]- All Rights Reserved Reading location - IP/workstation name: [email or web address]
[2018-09-19] MEDS ORDERED: POTASSIUM CHLORIDE 10 MEQ CAPSULE.ER PO ONE (15:42)
--- NOTE | 2018-09-19 15:47 | ER Document Report ---
ED General - General Chief Complaint: Fever Stated Complaint: FEVER Time Seen by Provider: 09/19/18 14:26 Notes: Patient's been sick for a couple of days. Has slept most of the last 2 days. Has had some diarrhea last night. Developed a cough and congestion in the past week. Had a fever up to 103 degrees earlier today. About 2 AM this morning, she awakened and found herself in the shower with no clothes on and screaming for her who came and assisted her up. Family says that she is been acting confused since yesterday. Has not urinated for the past couple of days. Patient has a history of 2 aneurysms in her brain. She is scheduled for surgery in a few months. She had some headache earlier, but not now. She has chronic back pain. TRAVEL OUTSIDE OF THE [place] IN LAST 30 DAYS: No - Related Data Allergies/Adverse Reactions: acetaminophen [From Vicodin] Allergy (Verified 07/09/18 09:15) Migraine hydrocodone [From Vicodin] Allergy (Verified 07/09/18 09:15) Migraine No Known Drug Allergies Allergy (Verified 01/30/17 19:28) oxycodone Allergy (Verified 07/09/18 09:15) metal Allergy (Severe, Uncoded 07/09/18 09:15) rash Past Medical History - Social History Smoking Status: Never Smoker Chew tobacco use (# tins/day): No Frequency of alcohol use: None Drug Abuse: None Family History: Reviewed & Not Pertinent Patient has suicidal ideation: No Patient has homicidal ideation: No - Past Medical History Cardiac Medical History: Reports: Hx Hypercholesterolemia, Hx Hypertension - NO MEDS Pulmonary Medical History: Reports: Hx COPD - inhalers GI Medical History: Reports: Hx Hiatal Hernia Musculoskeletal Medical History: Reports Hx Arthritis Infectious Medical History: Denies: Hx Hepatitis Past Surgical History: Reports: Hx Orthopedic Surgery. Denies: Hx Hysterectomy, Hx Mastectomy, Hx Open Heart Surgery, Hx Pacemaker - Immunizations Hx Diphtheria, Pertussis, Tetanus Vaccination: No Hx Pneumococcal Vaccination: 12/13/14 Review of Systems - Review of Systems Notes: REVIEW OF SYSTEMS: CONSTITUTIONAL : Fevers for the past couple of days, worse today. EENT: Denies eye, ear, nose or mouth or throat pain or other symptoms. CARDIOVASCULAR: Denies chest pain. RESPIRATORY: Recent onset of cough and congestion. See HPI.. GASTROINTESTINAL: Denies abdominal pain or nausea, vomiting, but diarrhea last night. GENITOURINARY: Denies difficulty or painful urinating, urinary frequency, blood in urine. Family says she has not urinated for 2 days. MUSCULOSKELETAL: Denies back or neck pain. Denies joint pain or swelling. SKIN: Denies rash or skin lesions. NEUROLOGICAL: See HPI. ALL OTHER SYSTEMS REVIEWED AND NEGATIVE. Physical Exam - Vital signs Vitals: Temp 99.8 F 09/19/18 12:04 Interpretation: Febrile Notes: PHYSICAL EXAMINATION: GENERAL: Well-appearing, in no acute distress. Low-grade fever. Anxious. HEAD: Atraumatic, normocephalic. EYES: Pupils equal round and reactive to light, extraocular movements intact. ENT: oropharynx clear without exudates. Moist mucous membranes. NECK: Normal range of motion, supple. LUNGS: Breath sounds clear and equal bilaterally. HEART: Regular rate and rhythm without murmurs. ABDOMEN: Soft, nontender. No guarding or rebound. No masses. BACK: No tenderness throughout entire back. EXTREMITIES: Normal range of motion without pain. NEUROLOGICAL: Normal speech. Normal sensory, motor, and reflex exams. Awake, alert, and oriented x3. . PSYCH: Normal mood, normal affect. Very anxious. SKIN: Warm, dry, no rashes. Course - Re-evaluation Re-evalutation: 09/19/18 16:07 Chest x-ray looks like possible pneumonia with some effusion, may be aspiration. No other obvious source for fever. White count 19,000. Patient will be admitted to the hospitalist service for IV antibiotics. - Vital Signs Vital signs: Temp Pulse Resp BP Pulse Ox 98.2 F 18 104/65 94 09/19/18 14:52 09/19/18 14:01 09/19/18 14:00 09/19/18 14:01 - Laboratory Result Diagrams: 09/19/18 12:05 09/19/18 12:05 Laboratory results interpreted by me: 09/19/18 09/19/18 09/19/18 12:05 12:05 13:35 WBC 19.1 H RBC 3.60 L Hgb 10.7 L Hct 31.8 L RDW 15.1 H Seg Neutrophils % 89.1 H Lymphocytes % 5.8 L Absolute Neutrophils 17.1 H Sodium 132.1 L Potassium 2.8 L* Chloride 96 L Total Protein 6.2 L Urine Protein 30 H Urine Ketones 80 H Urine Blood MODERATE H Urine Ascorbic Acid 20 H - Diagnostic Test Radiology results interpreted by me: 09/19/18 16:01 Chest x-ray looks like left sided infiltrate/effusion, possible aspiration. Discharge - Discharge Clinical Impression: Altered mental status, Fever, Pneumonia, Hypokalemia Disposition: ADMITTED INPATIENT Admitting Provider: Bryant (Hospitalist) Unit Admitted: [facility]
[2018-09-19] MEDS ORDERED: IPRATROPIUM/ALBUTEROL 0.5-2.5 MG/3 ML AMPUL NEB PRN (17:00)
[2018-09-19] MEDS ORDERED: ACETAMINOPHEN 325 MG TABLET PO PRN (17:00)
[2018-09-19] MEDS ORDERED: GUAIFENESIN SYRP 200 MG/10 ML UDC PO PRN (17:00)
--- NOTE | 2018-09-19 18:08 | EKG REPORT ---
SEVERITY:- ABNORMAL ECG - SINUS RHYTHM RIGHT BUNDLE BRANCH BLOCK PROBABLE INFEROLATERAL INFARCT, AGE INDETERM : Confirmed by: Fritz Boss MD 19-Sep-2018 18:07:47
[2018-09-19] MEDS: NYSTATIN 500000 UNIT/5 ML UDCUP PO SCH ×2 (18:46→21:36)
[2018-09-19] MEDS: ASCORBIC ACID 500 MG TABLET PO SCH (18:46)
[2018-09-19] MEDS: NORMAL SALINE 1000 ML 1,000 ML IV PRN (18:47)
[2018-09-19] MEDS ORDERED: AZITHROMYCIN INJ 500 MG VIAL IV ONE (18:51)
[2018-09-19] MEDS: AZITHROMYCIN 500 MG in DEXTROSE 5%-WATER 250 ML IV SCH (19:03)
[2018-09-19] MEDS ORDERED: POTASSI CL 20 MEQ/50 ML RIDER 20 MEQ/50 ML RTUPB IV ONE (20:13)
--- NOTE | 2018-09-19 20:17 | PDOC H&P ---
History of Present Illness Admission Date/PCP: 09/19/18 16:15 HANS WEATHERS Patient complains of: Productive cough and confusion History of Present Illness: WAYNE CABALLERO is a 73 year old female Past Medical History Cardiac Medical History: Reports: Hyperlipidema, Hypertension - NO MEDS Denies: Coronary Artery Disease, Myocardial Infarction Pulmonary Medical History: Reports: Chronic Obstructive Pulmonary Disease (COPD) - inhalers Denies: Asthma, Bronchitis, Pneumonia Neurological Medical History: Denies: Seizures GI Medical History: Reports: Hiatal Hernia Denies: Hepatitis Musculoskeltal Medical History: Reports: Arthritis Hematology: Reports: Anemia - AFTER A SX Denies: Sickle Cell Disease Past Surgical History Past Surgical History: Reports: Cholecystectomy, Orthopedic Surgery - Bilateral hips, right knee, Tonsillectomy, Other - Ovarian cysts Denies: Amputation, Hysterectomy, Mastectomy, Pacemaker Social History Information Source: Patient, Relative - Multiple family members in the room Lives with: Spouse/Significant other Smoking Status: Never Smoker Frequency of Alcohol Use: Occasional Hx Recreational Drug Use: No Hx Prescription Drug Abuse: No - Advance Directive Resuscitation Status: Do Not Resuscitate Surrogate healthcare decision maker:: Both the patient and her have living horvath that are reported to be on file at [facility]. Family History Family History: COPD, Malignancy - Multiple family members, Other - Alcoholism Parental Family History Reviewed: Yes Children Family History Reviewed: Yes Sibling(s) Family History Reviewed.: Yes Medication/Allergy Home Medications: Celecoxib [Celebrex] 200 mg PO DAILY 10/03/11 Fluticasone Propionate [Flonase Nasal [place] 50 Mcg/[place]] 1 spray NASL ASDIR PRN 10/03/11 Fluticasone/Salmeterol [Advair 100-50 Diskus 28 Dose] 1 puff IH DAILY 10/03/11 Montelukast Sodium [Singulair 10 Mg Tablet] 10 mg PO QHS 10/03/11 Tramadol HCl [Tramadol HCl ER] 100 mg PO TID 02/28/15 Ascorbic Acid [Vitamin C] 1,000 mg PO BID 12/23/17 Atorvastatin Calcium [Lipitor 20 mg Tablet] 20 mg PO QHS 12/23/17 Bupropion HCl [Bupropion HCl Sr] 150 mg PO DAILY 12/23/17 Cetirizine HCl [Zyrtec 10 mg Tablet] 1 tab PO DAILY 12/23/17 Cholecalciferol (Vitamin D3) [Vitamin D3 1000 Unit Tablet] 1,000 unit PO DAILY 12/23/17 Fluoxetine HCl [Prozac] 40 mg PO DAILY 12/23/17 Multivit-Min/Iron/Folic/Lutein [Centrum Silver Women Tablet] 1 each PO DAILY 12/23/17 Pantoprazole Sodium 40 mg PO QAM 12/23/17 Ubidecarenone [Coq-10] 100 mg PO DAILY 12/23/17 Allergies/Adverse Reactions: acetaminophen [From Vicodin] Allergy (Verified 07/09/18 09:15) Migraine hydrocodone [From Vicodin] Allergy (Verified 07/09/18 09:15) Migraine oxycodone Allergy (Verified 07/09/18 09:15) metal Allergy (Severe, Uncoded 07/09/18 09:15) rash Review of Systems Constitutional: PRESENT: as per HPI, anorexia - Especially last 2 to 3 days. Prior to this she has a good appetite., fever(s). ABSENT: headache(s), night sweats Eyes: PRESENT: other - Wears glasses Ears: PRESENT: other - Reports mild hearing loss Nose, Mouth, and Throat: PRESENT: other - Upper denture with partial lower plate. ABSENT: mouth pain, sore throat Cardiovascular: PRESENT: dyspnea on exertion. ABSENT: chest pain, edema, palpitations Respiratory: PRESENT: cough, sputum. ABSENT: hemoptysis Gastrointestinal: PRESENT: heartburn. ABSENT: abdominal pain, constipation, diarrhea, nausea, vomiting Genitourinary: PRESENT: difficulty urinating, other - Stress incontinence on occasion. ABSENT: dysuria Musculoskeletal: ABSENT: deformity, joint swelling Integumentary: ABSENT: diaphoresis, erythema, rash, wounds Neurological: PRESENT: confusion - Last night secondary to infection. ABSENT: frequent falls, memory loss, paresthesias, syncope Psychiatric: PRESENT: other - Family reports delirium last night due to infection Endocrine: ABSENT: cold intolerance, heat intolerance, menstrual abnormalities, polydipsia, polyphagia, polyuria Hematologic/Lymphatic: ABSENT: easy bruising, lymphadenopathy Allergic/Immunologic: PRESENT: seasonal rhinorrhea Physical Exam Vital Signs: Temp Pulse Resp BP Pulse Ox 98.2 F 18 104/65 94 09/19/18 14:52 09/19/18 14:01 09/19/18 14:00 09/19/18 14:01 Intake & Output 09/18/18 09/19/18 09/20/18 06:59 06:59 06:59 Intake Total 1000 Balance 1000 General appearance: PRESENT: no acute distress, cooperative, well-developed Head exam: PRESENT: atraumatic, normocephalic Eye exam: PRESENT: conjunctiva pale, EOMI. ABSENT: scleral icterus Ear exam: PRESENT: normal external ear exam Mouth exam: PRESENT: dry mucosa, tongue midline, other - Tongue coating Teeth exam: PRESENT: poor dentation Neck exam: ABSENT: carotid bruit, lymphadenopathy Respiratory exam: PRESENT: rhonchi - Left base, symmetrical, unlabored. ABSENT: rales, tachypnea, wheezes Cardiovascular exam: PRESENT: RRR, +S1, +S2, systolic murmur - 2/6 GI/Abdominal exam: PRESENT: normal bowel sounds, soft. ABSENT: distended, tenderness Rectal exam: PRESENT: deferred Gentrourinary exam: ABSENT: indwelling catheter Extremities exam: ABSENT: pedal edema, tenderness Musculoskeletal exam: PRESENT: normal inspection. ABSENT: tenderness Neurological exam: PRESENT: alert, awake, oriented to person, oriented to place, oriented to time, oriented to situation, CN II-XII grossly intact Psychiatric exam: PRESENT: appropriate affect, normal mood. ABSENT: agitated, anxious Focused psych exam: ABSENT: delusional, restlessness Skin exam: PRESENT: dry, warm. ABSENT: erythema, rash Results Laboratory Results: 09/19/18 12:05 09/19/18 12:05 09/19/18 09/19/18 09/19/18 12:05 12:05 12:05 WBC 19.1 H RBC 3.60 L Hgb 10.7 L Hct 31.8 L MCV 88 MCH 29.7 MCHC 33.7 RDW 15.1 H Plt Count 182 Seg Neutrophils % 89.1 H Lymphocytes % 5.8 L Monocytes % 4.5 Eosinophils % 0.5 Basophils % 0.1 Absolute Neutrophils 17.1 H Absolute Lymphocytes 1.1 Absolute Monocytes 0.9 Absolute Eosinophils 0.1 Absolute Basophils 0.0 Sodium 132.1 L Potassium 2.8 L* Chloride 96 L Carbon Dioxide 25 Anion Gap 11 BUN 13 Creatinine 0.68 Est GFR ( Amer) > 60 Est GFR (Non-Af Amer) > 60 Glucose 98 Lactic Acid 0.7 Calcium 8.8 Total Bilirubin 0.9 AST 25 ALT 23 Alkaline Phosphatase 86 Total Protein 6.2 L Albumin 3.5 Urine Color Urine Appearance Urine pH Ur Specific [place] Urine Protein Urine Glucose (UA) Urine Ketones Urine Blood Urine Nitrite Ur Leukocyte Esterase Urine WBC (Auto) Urine RBC (Auto) 09/19/18 13:35 WBC RBC Hgb Hct MCV MCH MCHC RDW Plt Count Seg Neutrophils % Lymphocytes % Monocytes % Eosinophils % Basophils % Absolute Neutrophils Absolute Lymphocytes Absolute Monocytes Absolute Eosinophils Absolute Basophils Sodium Potassium Chloride Carbon Dioxide Anion Gap BUN Creatinine Est GFR ( Amer) Est GFR (Non-Af Amer) Glucose Lactic Acid Calcium Total Bilirubin AST ALT Alkaline Phosphatase Total Protein Albumin Urine Color YELLOW Urine Appearance CLEAR Urine pH 6.0 Ur Specific [place] 1.013 Urine Protein 30 H Urine Glucose (UA) NEGATIVE Urine Ketones 80 H Urine Blood MODERATE H Urine Nitrite NEGATIVE Ur Leukocyte Esterase NEGATIVE Urine WBC (Auto) 2 Urine RBC (Auto) 4 Impressions: Chest X-Ray 09/19/18 14:29 IMPRESSION: There is a large heterogeneous opacity and probable small pleural effusion of the left lung base, best seen on lateral view. Findings are concerning for infection or aspiration. Underlying mass is not excluded. Recommend follow-up radiographs in 6 to 8 weeks to ensure complete resolution, or alternately further evaluation by CT. Assessment and Plan - Diagnosis (1) Pneumonia Qualifiers: Pneumonia type: due to unspecified organism Laterality: left Lung location: lower lobe of lung Qualified Code(s): J18.1 - Lobar pneumonia, unspecified organism Is this a current diagnosis for this admission?: Yes Plan: 09/19/2018-the patient has had a cough for a week. This has worsened over the last several days with significant changes such as fever, productive cough and confusion. This is a community-acquired pneumonia and likely an atypical organism or pneumococcus. I have ordered a sputum culture if available. She will be on Rocephin and azithromycin for now. (2) Leukocytosis Qualifiers: Leukocytosis type: unspecified Qualified Code(s): D72.829 - Elevated white blood cell count, unspecified Is this a current diagnosis for this admission?: Yes Plan: 09/19/2018-secondary to the pneumonia. Antibiotics initiated and will continue to monitor the white blood cell count. (3) Altered mental status Qualifiers: Altered mental status type: delirium Qualified Code(s): R41.0 - Disorientation, unspecified Is this a current diagnosis for this admission?: Yes Plan: 09/19/2018-delirium due to the infection. With 1 L of IV fluid the patient feels much better and is completely oriented. We will continue to monitor mental status. (4) Hypokalemia Is this a current diagnosis for this admission?: Yes Plan: 09/19/2018-the patient was given 40 mEq of oral potassium for a potassium level o f 2.8. I will give her 20 mEq of IV potassium tonight and start scheduled dosing of oral potassium chloride tomorrow. Check electrolytes in the morning. (5) Cerebral aneurysm Is this a current diagnosis for this admission?: Yes Plan: 09/19/2018-the patient has an appointment at the end of the month for evaluation and treatment of the aneurysms. Preop tests have been ordered. We will try and resolve this pneumonia so as not to delay her procedures. (6) Newly recognized murmur Is this a current diagnosis for this admission?: Yes Plan: 09/19/2018-during the exam a heart murmur was identified. I asked the patient if she has any history of murmur. She said that she did not. Since she has an echocardiogram scheduled, and because I do not believe this is a clinically significant issue at this time, I will not order an echocardiogram during this hospitalization. (7) Chronic obstructive pulmonary disease Qualifiers: Chronic bronchitis type: simple Is this a current diagnosis for this admission?: Yes Plan: 09/19/2018-the patient carries a diagnosis of chronic obstructive pulmonary disease. She stopped smoking many years ago. She did grow up in a household with significant secondhand smoke. Her inhaler therapy was recently changed from Advair to Trelegy. We will continue same during her hospitalization. - Time Time Spent with patient: 35 or more minutes Medications reviewed and adjusted accordingly: Yes Anticipated discharge: Home - Inpatient Certification Based on my medical assessment, after consideration of the patient's comorbidities, presenting symptoms, or acuity I expect that the services needed warrant INPATIENT care.: Yes I certify that my determination is in accordance with my understanding of Medicare's requirements for reasonable and necessary INPATIENT services [42 CFR 412.3e].: Yes Medical Necessity: Need For IV Fluids, Need for IV Antibiotics
--- NOTE | 2018-09-19 20:21 | ADVANCED CARE ---
Attendance: The patient as well as her , daughter and 5 other family members were present Resuscitation Status: Do Not Resuscitate Discussion: The patient reported, and the confirmed, that they have living horvath and that she is currently DO NOT RESUSCITATE. They believe the document should be on record at this hospital. Fortunately this is something they have discussed. With children and relatives present in the room they are currently aware (if not before) that these documents exists. They are aware of their parents wishes. The documents were not reviewed specifically at this time. Care Planning Goals: The patient has long-standing COPD and will be treated for her aneurysms. She does not want heroic measures should a catastrophic event befall her. Document(s) Completed: None as she has completed documents already Time Spent: 17 minutes
[2018-09-19] MEDS: TRAMADOL HCL 50 MG TABLET PO PRN (21:34)
[2018-09-19] MEDS: POTASSIUM CHLORIDE 10 MEQ CAPSULE.ER PO SCH (21:34)
[2018-09-19] MEDS: MONTELUKAST SODIUM 10 MG TABLET PO SCH (21:35)
[2018-09-19] MEDS: GUAIFENESIN 600 MG TABLET.SA PO SCH (21:36)
[2018-09-19] MEDS: ATORVASTATIN CALCIUM 20 MG TABLET PO SCH (21:36)
[2018-09-20 04:46] LABS: ABSOLUTE EOSINOPHILS # (AUTO) 0.3 10^3/uL (0.0-0.6); ABSOLUTE LYMPHOCYTES (AUTO) 1.2 10^3/uL (0.5-4.7); ABSOLUTE MONOCYTES (AUTO) 0.7 10^3/uL (0.1-1.4); ABSOLUTE NEUT (AUTO) 12.5 10^3/uL (1.7-8.2); BASOPHILS % (AUTO) 0.2 % (0-2); EOSINOPHILS % (AUTO) 1.9 % (0-6); HEMATOCRIT 31.1 % (36.0-47.0); HEMOGLOBIN 10.2 g/dL (12.0-15.5); LYMPHOCYTES % (AUTO) 8.4 % (13-45); MEAN CORPUSCULAR HEMOGLOBIN 29.4 pg (27.0-33.4); MEAN CORPUSCULAR HGB CONC 32.9 g/dL (32.0-36.0); MEAN CORPUSCULAR VOLUME 89 fl (80-97); MONOCYTES % (AUTO) 4.8 % (3-13); PLATELET COUNT 165 10^3/uL (150-450); RED BLOOD COUNT 3.49 10^6/uL (3.72-5.28); RED CELL DISTRIBUTION WIDTH 15.2 % (11.5-14.0); SEGMENTED NEUTROPHILS % (AUTO) 84.7 % (42-78); TOTAL CELLS COUNTED % (AUTO) 100 %; WHITE BLOOD COUNT 14.7 10^3/uL (4.0-10.5)
[2018-09-20 05:13] LABS: ANION GAP 7 (5-19); BLOOD UREA NITROGEN 7 mg/dL (7-20); CALCIUM 8.5 mg/dL (8.4-10.2); CARBON DIOXIDE 26 mmol/L (22-30); CHLORIDE 106 mmol/L (98-107); GLUCOSE 118 mg/dL (75-110); SODIUM 139.2 mmol/L (137-145)
[2018-09-20] MEDS: PANTOPRAZOLE SODIUM 40 MG TABLET.DR PO SCH (05:36)
[2018-09-20] MEDS: NORMAL SALINE 1000 ML 1,000 ML IV PRN ×2 (05:36→15:13)
[2018-09-20] MEDS: TRAMADOL HCL 50 MG TABLET PO PRN ×3 (06:54→22:36)
--- NOTE | 2018-09-20 08:37 | RADIOLOGY REPORT (SQ) ---
EXAM DESCRIPTION: CHEST SINGLE VIEW COMPLETED DATE/TIME: 09/20/2018 7:58 am REASON FOR STUDY: pneumonia COMPARISON: 09/19/2018. EXAM PARAMETERS: NUMBER OF VIEWS: One view. TECHNIQUE: Single frontal radiographic view of the chest acquired. RADIATION DOSE: NA LIMITATIONS: None. FINDINGS: LUNGS AND PLEURA: The density in the retrocardiac left lung base. Right lung clear. MEDIASTINUM AND HILAR STRUCTURES: No masses. Contour normal. HEART AND VASCULAR STRUCTURES: Heart normal in size. Normal vasculature. BONES: No acute findings. Old rib fractures. HARDWARE: None in the chest. OTHER: No other significant finding. IMPRESSION: NO CHANGE IN APPEARANCE OF THE CHEST. TECHNICAL DOCUMENTATION: JOB ID: [id number] [employer]- All Rights Reserved Reading location - IP/workstation name: [email or web address]
[2018-09-20] MEDS ORDERED: CEFTRIAXONE SODIUM 1,000 MG in DEXTROSE 5%-WATER 50 ML IV SCH (10:00)
[2018-09-20] MEDS ORDERED: CEFTRIAXONE 1 GM/D5W RTU 1 GM/50 ML RTUPB IV SCH (10:00)
[2018-09-20] MEDS: METOPROLOL SUCCINATE 25 MG TAB.SR.24H PO SCH (10:08)
[2018-09-20] MEDS: GUAIFENESIN 600 MG TABLET.SA PO SCH ×2 (10:08→22:35)
[2018-09-20] MEDS: POTASSIUM CHLORIDE 10 MEQ CAPSULE.ER PO SCH ×2 (10:08→22:36)
[2018-09-20] MEDS: NYSTATIN 500000 UNIT/5 ML UDCUP PO SCH ×4 (10:09→22:35)
[2018-09-20] MEDS: PREDNISONE 5 MG TABLET PO SCH (10:09)
[2018-09-20] MEDS: ENOXAPARIN SODIUM INJ 40 MG/0.4 ML DISP.SYRIN SUBCUT SCH (10:09)
[2018-09-20] MEDS: ASCORBIC ACID 500 MG TABLET PO SCH ×2 (10:09→17:20)
[2018-09-20] MEDS: FLUTICASONE/UMECLIDIN/VILANTER 100-62.5-25 MCG/DOSE IH SCH (10:10)
--- NOTE | 2018-09-20 13:15 | Progress Note Acknowledgement ---
Progress Note Acknowledgement Progess Note Acknowledgement: I, the undersigned member of the medical staff with appropriate privileges and with supervisory authority over Kady Bernstein, a [facility] allied health professional, acknowledge that I have reviewed the progress notes entered on this patient, and in my professional judgment believe that the assessment made and/or any care evidenced was appropriate
--- NOTE | 2018-09-20 13:24 | PDOC PROGRESS REPORT ---
Subjective Progress Note for:: 09/20/18 Subjective:: The patient is a 73-year-old female with past medical history of hypertension, hyperlipidemia, COPD, hiatal hernia, and arthritis who was admitted 09/19/2018 for a left lower lobe pneumonia and altered mental status. The patient was seen on morning rounds. She is found resting in bed comfortably on room air. She is awake and oriented x4. She tells me that she is feeling much better than yesterday. She does continue to have shortness of breath and a productive cough. Otherwise, she denies fever, chills, chest pain, palpitations, abdominal pain, nausea vomiting and diarrhea. She has no new questions or concerns today. No concerns per nursing. Reason For Visit: PNEUMONIA Physical Exam Vital Signs: Temp Pulse Resp BP Pulse Ox 100.4 F 99 16 132/81 H 95 09/20/18 07:22 09/20/18 07:22 09/20/18 07:22 09/20/18 07:22 09/20/18 07:47 Pulse Oximeter Continuous Start: 09/19/18 17:03 Freq: RTQ4 Status: Active Protocol: Document 09/20/18 07:47 NSM (Rec: 09/20/18 09:20 NSM [id number]) Pulse Oximetry Assessment Oxygen Saturation (92-100) 95 Oxygen Delivery Method Room Air Fraction of Inspired Oxygen (FIO2) 21 Equipment Usage Equipment in Use Continuous SpO2 Machine # [id number] Intake & Output 09/19/18 09/20/18 09/21/18 06:59 06:59 06:59 Intake Total 2350 286 Output Total 120 Balance 2230 286 Weight 79 kg General appearance: PRESENT: no acute distress, cooperative, obese, well- developed, well-nourished Head exam: PRESENT: atraumatic, normocephalic Eye exam: PRESENT: conjunctiva pink, EOMI, PERRLA. ABSENT: scleral icterus Ear exam: PRESENT: normal external ear exam Mouth exam: PRESENT: moist, tongue midline Neck exam: ABSENT: carotid bruit, JVD, lymphadenopathy, thyromegaly Respiratory exam: PRESENT: clear to auscultation memo, rhonchi, symmetrical, tachypnea, other - Room air. ABSENT: rales, wheezes Cardiovascular exam: PRESENT: RRR, +S1, +S2, systolic murmur. ABSENT: diastolic murmur, rubs Pulses: PRESENT: normal dorsalis pedis pul Vascular exam: PRESENT: normal capillary refill GI/Abdominal exam: PRESENT: normal bowel sounds, soft. ABSENT: distended, guarding, mass, organolmegaly, rebound, tenderness Rectal exam: PRESENT: deferred Extremities exam: PRESENT: full ROM. ABSENT: calf tenderness, clubbing, pedal edema Neurological exam: PRESENT: alert, awake, oriented to person, oriented to place, oriented to time, oriented to situation, CN II-XII grossly intact. ABSENT: motor sensory deficit Psychiatric exam: PRESENT: appropriate affect, normal mood. ABSENT: homicidal ideation, suicidal ideation Skin exam: PRESENT: dry, intact, warm. ABSENT: cyanosis, rash Results Laboratory Results: 09/20/18 04:29 09/20/18 04:29 09/19/18 09/20/18 09/20/18 13:35 04:29 04:29 WBC 14.7 H RBC 3.49 L Hgb 10.2 L Hct 31.1 L MCV 89 MCH 29.4 MCHC 32.9 RDW 15.2 H Plt Count 165 Seg Neutrophils % 84.7 H Lymphocytes % 8.4 L Monocytes % 4.8 Eosinophils % 1.9 Basophils % 0.2 Absolute Neutrophils 12.5 H Absolute Lymphocytes 1.2 Absolute Monocytes 0.7 Absolute Eosinophils 0.3 Absolute Basophils 0.0 Sodium 139.2 Potassium 4.0 D Chloride 106 Carbon Dioxide 26 Anion Gap 7 BUN 7 Creatinine 0.57 Est GFR ( Amer) > 60 Est GFR (Non-Af Amer) > 60 Glucose 118 H Calcium 8.5 Magnesium 1.9 Urine Color YELLOW Urine Appearance CLEAR Urine pH 6.0 Ur Specific [place] 1.013 Urine Protein 30 H Urine Glucose (UA) NEGATIVE Urine Ketones 80 H Urine Blood MODERATE H Urine Nitrite NEGATIVE Ur Leukocyte Esterase NEGATIVE Urine WBC (Auto) 2 Urine RBC (Auto) 4 Impressions: Chest X-Ray 09/20/18 06:00 IMPRESSION: NO CHANGE IN APPEARANCE OF THE CHEST. Assessment and Plan - Diagnosis (1) Pneumonia Qualifiers: Pneumonia type: due to unspecified organism Laterality: left Lung loca tion: lower lobe of lung Qualified Code(s): J18.1 - Lobar pneumonia, unspecified organism Is this a current diagnosis for this admission?: Yes Plan: Blood and sputum cultures pending. Repeat chest x-ray today unchanged from time of admission. Leukocytosis is trending down; T-max last 24 hours 100.4. Patient is admitted to the medical floor and continuous cardiac telemetry. She is empirically been placed on IV azithromycin and Rocephin; Day #2. She supported with supplemental oxygen as needed needed nebulizer treatments. Mucinex twice daily. Robitussin as needed. Pulmonary toilet with incentive spirometry (2) Altered mental status Qualifiers: Altered mental status type: delirium Qualified Code(s): R41.0 - Disorientat ion, unspecified Is this a current diagnosis for this admission?: Yes Plan: Resolved; likely acute metabolic encephalopathy secondary to infectious process (left lower lobe pneumonia) Continue management as above. Supportive care. Fall precautions. (3) Cerebral aneurysm Is this a current diagnosis for this admission?: Yes Plan: The patient has an appointment at the end of the month for evaluation and treatment of the aneurysms. Preop tests have been ordered by her outpatient provider/surgeon. Expect to resolve this pneumonia shortly; do not anticipate delay to her procedures. (4) Chronic obstructive pulmonary disease Qualifiers: Chronic bronchitis type: simple Is this a current diagnosis for this admission?: Yes Plan: Stable and without exacerbation at this time. We will continue her home medication regiment of Trelegy, prednisone 5 mg daily, Singulair Will provide supplemental oxygen and nebulizer treatments as necessary. No indication for increased steroid therapy at this time. (5) Fever Is this a current diagnosis for this admission?: Yes Plan: Secondary to #1. T-max last 24 hours is 100.4. Management of pneumonia as above. Tylenol as needed for fever control. (6) Hypokalemia Is this a current diagnosis for this admission?: Yes Plan: Resolved. Daily chemistries and replace as indicated. (7) Leukocytosis Qualifiers: Leukocytosis type: unspecified Qualified Code(s): D72.829 - Elevated white blood cell count, unspecified Is this a current diagnosis for this admission?: Yes Plan: Trending down; the WBC 19.1-> 14.7 Secondary to #1. Cultures and antibiotics as above. (8) Newly recognized murmur Is this a current diagnosis for this admission?: Yes Plan: 09/19/2018-during the exam a heart murmur was identified. I asked the patient if she has any history of murmur. She said that she did not. Since she has an echocardiogram scheduled, and because I do not believe this is a clinically significant issue at this time, I will not order an echocardiogram during this hospitalization. - Time Time Spent with patient: 25-34 minutes Medications reviewed and adjusted accordingly: Yes Anticipated discharge: Home Within: within 48 hours
[2018-09-20] MEDS ORDERED: (PENDING PHARMACY ID) (Azelastine Hcl [Azelastine Hcl] 2 SPRAY) NASL SCH (13:45)
[2018-09-20] MEDS ORDERED: (PENDING PHARMACY ID) (Nystatin 5 ML) PO SCH (14:00)
[2018-09-20] MEDS: BUPROPION HCL 75 MG TABLET PO SCH (17:21)
[2018-09-20] MEDS: AZITHROMYCIN 500 MG in DEXTROSE 5%-WATER 250 ML IV SCH (17:21)
[2018-09-20] MEDS ORDERED: (PENDING PHARMACY ID) (Azelastine Hcl [Azelastine Hcl] 2 SPRAY) NS SCH (18:00)
[2018-09-20] MEDS: ATORVASTATIN CALCIUM 20 MG TABLET PO SCH (22:35)
[2018-09-20] MEDS: MONTELUKAST SODIUM 10 MG TABLET PO SCH (22:36)
[2018-09-21 04:55] LABS: HEMATOCRIT 27.7 % (36.0-47.0); HEMOGLOBIN 9.3 g/dL (12.0-15.5); MEAN CORPUSCULAR HEMOGLOBIN 29.7 pg (27.0-33.4); MEAN CORPUSCULAR HGB CONC 33.6 g/dL (32.0-36.0); MEAN CORPUSCULAR VOLUME 88 fl (80-97); PLATELET COUNT 165 10^3/uL (150-450); RED BLOOD COUNT 3.14 10^6/uL (3.72-5.28); RED CELL DISTRIBUTION WIDTH 15.2 % (11.5-14.0); WHITE BLOOD COUNT 8.8 10^3/uL (4.0-10.5)
[2018-09-21 05:17] LABS: ANION GAP 7 (5-19); BLOOD UREA NITROGEN 5 mg/dL (7-20); CARBON DIOXIDE 24 mmol/L (22-30); CHLORIDE 108 mmol/L (98-107); GLUCOSE 101 mg/dL (75-110); POTASSIUM 3.4 mmol/L (3.6-5.0); SODIUM 138.7 mmol/L (137-145)
[2018-09-21] MEDS: NORMAL SALINE 1000 ML 1,000 ML IV PRN (05:26)
[2018-09-21] MEDS: PANTOPRAZOLE SODIUM 40 MG TABLET.DR PO SCH (07:36)
[2018-09-21] MEDS ORDERED: HYDROCORTISONE ACETATE 25 MG SUPP.RECT PR PRN (08:33)
[2018-09-21] MEDS ORDERED: POTASSIUM CHLORIDE 10 MEQ CAPSULE.ER PO ONE (08:45)
[2018-09-21] MEDS: METOPROLOL SUCCINATE 25 MG TAB.SR.24H PO SCH (09:55)
[2018-09-21] MEDS: GUAIFENESIN 600 MG TABLET.SA PO SCH (09:55)
[2018-09-21] MEDS: PREDNISONE 5 MG TABLET PO SCH (09:55)
[2018-09-21] MEDS: BUPROPION HCL 75 MG TABLET PO SCH (09:55)
[2018-09-21] MEDS: ASCORBIC ACID 500 MG TABLET PO SCH (09:55)
[2018-09-21] MEDS: POTASSIUM CHLORIDE 10 MEQ CAPSULE.ER PO SCH (09:56)
[2018-09-21] MEDS: FLUTICASONE/UMECLIDIN/VILANTER 100-62.5-25 MCG/DOSE IH SCH (09:56)
[2018-09-21] MEDS: NYSTATIN 500000 UNIT/5 ML UDCUP PO SCH (09:56)
[2018-09-21] MEDS: ENOXAPARIN SODIUM INJ 40 MG/0.4 ML DISP.SYRIN SUBCUT SCH (09:56)
[2018-09-21] MEDS ORDERED: CEFPODOXIME 200 MG TABLET PO SCH (10:00)
[2018-09-21] MEDS ORDERED: FLUOXETINE HCL 20 MG CAPSULE PO SCH (10:00)
[2018-09-21] MEDS ORDERED: (PENDING PHARMACY ID) (Bupropion Hcl [Wellbutrin Sr 150 Mg Tablet] 150 MG) PO SCH (10:00)
[2018-09-21] MEDS ORDERED: CHOLECALCIFEROL (D3) 1,000 UNIT (25 MCG) TABLET PO SCH (10:00)
[2018-09-21 10:13] VITALS: BP 110/68
--- NOTE | 2018-09-21 13:25 | PDOC DISCHARGE SUMMARY ---
General - Admit/Disc Date/PCP Admission Date/Primary Care Provider: 09/19/18 16:15 HANS WEATHERS Discharge Date: 09/21/18 - Additional Information Resuscitation Status: Do Not Resuscitate - t\ Discharge Activity: Activity As Tolerated, Balance Activity w/Rest Prescriptions: Azithromycin [Zithromax 250 mg Tablet] 250 mg PO QPM #3 tablet Cefpodoxime Proxetil [Vantin 200 mg Tablet] 200 mg PO Q12 #15 tablet Hydrocortisone [Anusol-Hc] 30 gm RC BID PRN #1 tube PRN Reason: Home Medications: Acetaminophen [Tylenol] 650 mg PO ASDIR PRN 09/20/18 Atorvastatin Calcium [Lipitor 20 mg Tablet] 20 mg PO QHS 09/20/18 Bupropion HCl [Wellbutrin Sr 150 mg Tablet] 150 mg PO DAILY 09/20/18 Cholecalciferol (Vitamin D3) [Vitamin D3 1000 Unit Tablet] 1,000 unit PO DAILY 09/20/18 Fluoxetine HCl [Prozac] 40 mg PO DAILY 09/20/18 Fluticasone/Umeclidin/Vilanter [Trelegy 100-62.5-25 Mcg Ellipta 14 Dose/Dpi] 2 puff IH BID 09/20/18 Metoprolol Succinate [Toprol Xl 25 mg Tab.sr] 25 mg PO DAILY 09/20/18 Montelukast Sodium [Singulair 10 mg Tablet] 10 mg PO QHS 09/20/18 Nystatin [Mycostatin 418220 Unit/1 ml Susp 60 ml Btl] 5 ml PO QID 09/20/18 Pantoprazole Sodium [Protonix [address] Tablet] 40 mg PO BID 09/20/18 Prednisone [Deltasone 5 mg Tablet] 5 mg PO DAILY 09/20/18 Tramadol HCl [Ultram 50 mg Tablet] 50 mg PO Q8 09/20/18 Azithromycin [Zithromax 250 mg Tablet] 250 mg PO QPM #3 tablet 09/21/18 Cefpodoxime Proxetil [Vantin 200 mg Tablet] 200 mg PO Q12 #15 tablet 09/21/18 Hydrocortisone [Anusol-Hc] 30 gm RC BID PRN #1 tube 09/21/18 History of Present Illness Patient complains of: Shortness of breath and cough History of Present Illness: WAYNE CABALLERO is a 73-year-old female with past medical history of hypertension, hyperlipidemia, COPD, hiatal hernia, and arthritis who was admitted 09/19/2018 for a left lower lobe pneumonia and altered mental status. Hospital Course Hospital Course: She was admitted to the hospitalist service on IMCU. She was started on IV broad-spectrum antibiotics after blood cultures x2 were obtained. He was started on nebulizer treatments as well. Her respiratory status quickly improved over the next 48 hours. She was able to be weaned off of oxygen. She has had intermittent periods of confusion especially at night. Her states this is been ongoing for the last several months. Her antibiotics were transitioned to oral today. Her labs are normal. She feels well. She is ambul ating in the hallway without any drop in oxygenation. She was agreeable to home health at discharge. She this will be arranged. She was discharged home with her . She will continue on antibiotic for total of 10 days for left lower lobe pneumonia. Patient will follow-up with her primary care provider next 1 to 2 weeks. f Physical Exam Vital Signs: Temp Pulse Resp BP Pulse Ox 100.0 F 88 18 127/74 H 95 09/21/18 08:19 09/21/18 08:19 09/21/18 08:19 09/21/18 08:19 09/21/18 08:19 Pulse Oximeter Continuous Start: 09/19/18 17:03 Freq: RTQ4 Status: Active Protocol: Document 09/21/18 04:00 LRO (Rec: 09/21/18 04:17 LRO [id number]) Pulse Oximetry Assessment Oxygen Saturation (92-100) 95 Oxygen Delivery Method Room Air Fraction of Inspired Oxygen (FIO2) 21 Equipment Usage Equipment in Use Continuous SpO2 Machine # 10 Intake & Output 09/20/18 09/21/18 09/22/18 06:59 06:59 06:59 Intake Total 2350 2974 320 Output Total 120 Balance 2230 2974 320 Weight 79 kg 79.5 kg General appearance: PRESENT: no acute distress, obese, well-developed, well-nour ished Head exam: PRESENT: atraumatic, normocephalic Eye exam: PRESENT: conjunctiva pink, EOMI, PERRLA. ABSENT: scleral icterus Ear exam: PRESENT: normal external ear exam Mouth exam: PRESENT: moist, tongue midline Neck exam: ABSENT: carotid bruit, JVD, lymphadenopathy, thyromegaly Respiratory exam: PRESENT: crackles - left base, symmetrical, unlabored Cardiovascular exam: PRESENT: RRR. ABSENT: diastolic murmur, rubs, systolic murmur Pulses: PRESENT: normal dorsalis pedis pul Vascular exam: PRESENT: normal capillary refill GI/Abdominal exam: PRESENT: normal bowel sounds, soft. ABSENT: distended, guarding, mass, organolmegaly, rebound, tenderness Rectal exam: PRESENT: deferred Extremities exam: PRESENT: full ROM. ABSENT: calf tenderness, clubbing, pedal edema Musculoskeletal exam: PRESENT: ambulatory, full ROM Neurological exam: PRESENT: alert, awake, oriented to person, oriented to place, oriented to time, oriented to situation, CN II-XII grossly intact. ABSENT: motor sensory deficit Psychiatric exam: PRESENT: appropriate affect, normal mood. ABSENT: homicidal ideation, suicidal ideation Skin exam: PRESENT: dry, intact, warm. ABSENT: cyanosis, rash Results Laboratory Results: 09/21/18 04:42 09/21/18 04:42 09/21/18 09/21/18 04:42 04:42 WBC 8.8 RBC 3.14 L Hgb 9.3 L Hct 27.7 L MCV 88 MCH 29.7 MCHC 33.6 RDW 15.2 H Plt Count 165 Sodium 138.7 Potassium 3.4 L Chloride 108 H Carbon Dioxide 24 Anion Gap 7 BUN 5 L Creatinine 0.44 L Est GFR ( Amer) > 60 Est GFR (Non-Af Amer) > 60 Glucose 101 Calcium 8.0 L Impressions: Chest X-Ray 09/20/18 06:00 IMPRESSION: NO CHANGE IN APPEARANCE OF THE CHEST. Qualifiers - * PATIENT BEING DISCHARGED WITH ANY OF THE FOLLOWING DIAGNOSIS: No Acute Heart Failure - Is this a Heart Failure Patient?: No Plan Discharge Plan: Follow-up with primary care provider in 1 to 2 weeks Time Spent: Less than 30 Minutes
--- NOTE | 2018-09-21 13:27 | PDOC PROGRESS REPORT ---
Subjective Progress Note for:: 09/21/18 Subjective:: The patient is a 73-year-old female with past medical history of hypertension, hyperlipidemia, COPD, hiatal hernia, and arthritis who was admitted 09/19/2018 for a left lower lobe pneumonia and altered mental status. Today she is sitting in the bedside chair off oxygen. She continues to have mostly a nonproductive cough. She denies any shortness of breath, dyspnea or chest pain Reason For Visit: PNEUMONIA Physical Exam Vital Signs: Temp Pulse Resp BP Pulse Ox 98.8 F 77 22 H 110/68 96 09/21/18 04:00 09/21/18 07:00 09/21/18 04:00 09/21/18 04:00 09/21/18 04:00 Pulse Oximeter Continuous Start: 09/19/18 17:03 Freq: RTQ4 Status: Active Protocol: Document 09/21/18 04:00 LRO (Rec: 09/21/18 04:17 LRO [id number]) Pulse Oximetry Assessment Oxygen Saturation (92-100) 95 Oxygen Delivery Method Room Air Fraction of Inspired Oxygen (FIO2) 21 Equipment Usage Equipment in Use Continuous SpO2 Machine # 10 Intake & Output 09/20/18 09/21/18 09/22/18 06:59 06:59 06:59 Intake Total 2350 2974 Output Total 120 Balance 2230 2974 Weight 79 kg 79.5 kg General appearance: PRESENT: no acute distress, well-developed, well-nourished Head exam: PRESENT: atraumatic, normocephalic Eye exam: PRESENT: conjunctiva pink, EOMI, PERRLA. ABSENT: scleral icterus Ear exam: PRESENT: bleeding Mouth exam: PRESENT: dry mucosa Neck exam: ABSENT: carotid bruit, JVD, lymphadenopathy, thyromegaly Respiratory exam: PRESENT: crackles, symmetrical, unlabored Cardiovascular exam: PRESENT: RRR. ABSENT: diastolic murmur, rubs, systolic murmur Pulses: PRESENT: normal dorsalis pedis pul GI/Abdominal exam: PRESENT: normal bowel sounds, soft. ABSENT: distended, guarding, mass, organolmegaly, rebound, tenderness Rectal exam: PRESENT: deferred Extremities exam: PRESENT: full ROM. ABSENT: calf tenderness, clubbing, pedal edema Neurological exam: PRESENT: alert, awake, oriented to person, oriented to place, oriented to time, oriented to situation, CN II-XII grossly intact. ABSENT: motor sensory deficit Psychiatric exam: PRESENT: appropriate affect, normal mood. ABSENT: homicidal ideation, suicidal ideation Skin exam: PRESENT: dry, intact, warm. ABSENT: cyanosis, rash Results Laboratory Results: 09/21/18 04:42 09/21/18 04:42 09/21/18 09/21/18 04:42 04:42 WBC 8.8 RBC 3.14 L Hgb 9.3 L Hct 27.7 L MCV 88 MCH 29.7 MCHC 33.6 RDW 15.2 H Plt Count 165 Sodium 138.7 Potassium 3.4 L Chloride 108 H Carbon Dioxide 24 Anion Gap 7 BUN 5 L Creatinine 0.44 L Est GFR ( Amer) > 60 Est GFR (Non-Af Amer) > 60 Glucose 101 Calcium 8.0 L Impressions: Chest X-Ray 09/20/18 06:00 IMPRESSION: NO CHANGE IN APPEARANCE OF THE CHEST. Assessment and Plan - Diagnosis (1) Cerebral aneurysm Is this a current diagnosis for this admission?: Yes (2) Chronic obstructive pulmonary disease Qualifiers: Chronic bronchitis type: simple Is this a current diagnosis for this admission?: Yes (3) Fever Is this a current diagnosis for this admission?: Yes (4) Hypokalemia Is this a current diagnosis for this admission?: Yes (5) Leukocytosis Qualifiers: Leukocytosis type: unspecified Qualified Code(s): D72.829 - Elevated white blood cell count, unspecified Is this a current diagnosis for this admission?: Yes (6) Newly recognized murmur Is this a current diagnosis for this admission?: Yes (7) Pneumonia Qualifiers: Pneumonia type: due to unspecified organism Laterality: left Lung location: lower lobe of lung Qualified Code(s): J18.1 - Lobar pneumonia, unspecified organism Is this a current diagnosis for this admission?: Yes
[2018-09-21] MEDS ORDERED: AZITHROMYCIN 250 MG TABLET PO SCH (18:00)
== END 2018-09-21 11:03 | disposition home health service (06) | DRG 193 ==
LOC: ER 12:01 → EH 16:15 → 3S 17:30
PROVIDERS: ADMIT Hospitalist; ATTEND Hospitalist
DX: J18.1 Lobar pneumonia, unspecified organism (principal); G93.41 Metabolic encephalopathy; J44.1 Chronic obstructive pulmonary disease with (acute) exacerbation; E87.6 Hypokalemia; Z88.5 Allergy status to narcotic agent; E78.5 Hyperlipidemia, unspecified; K44.9 Diaphragmatic hernia without obstruction or gangrene; M19.90 Unspecified osteoarthritis, unspecified site; Y95 Nosocomial condition; I67.1 Cerebral aneurysm, nonruptured; Z66 Do not resuscitate
CPT/HCPCS: 36415; 51701; 71045; 71046; 80048; 80053; 81001; 83605; 83735; 85025; 85027; 87040; 87070; 87077; 87186; 87205; 93005; 93010; 94762; 94799; 99285; J0456; J0696; J1650; J3480; J3490; J7030; J7060; J7512

== ENCOUNTER 2019-08-03 22:39 | Emergency (ER) | payer MEDICARE, OTHER ==
[2019-08-03] MEDS ORDERED: ONDANSETRON HCL INJ/PF 4 MG/2 ML SDV IV ONE (23:12)
[2019-08-03] MEDS ORDERED: MORPHINE SULFATE 10 MG/ML INJ IV ONE (23:12)
[2019-08-03] MEDS ORDERED: DIPHENHYDRAMINE HCL 50 MG/ML VIAL IV ONE (23:13)
--- NOTE | 2019-08-03 23:15 | ER Document Report ---
ED Medical Screen (RME) - General Stated Complaint: STOMACH PAIN Time Seen by Provider: 08/03/19 23:07 Primary Care Provider: THI GALDAMEZ MD [Primary Care Provider] - Follow up as needed Notes: Patient is a 74-year-old female who presents to the emergency department with a chief complaint of right lower quadrant abdominal pain. Patient states that she has a hernia and this morning she started to have pain in that area and the pain got progressively worse. States that she now feels a "pooch" to that area. Patient had plans for surgery, but since she is on Brilinta and aspirin, her surgeon has decided to hold off. Exam: Tender right lower quadrant abdomen. Patient states that morphine makes her itch sometimes, therefore Benadryl was also ordered. I have greeted and performed a rapid initial assessment of this patient. A comprehensive ED assessment and evaluation of the patient, analysis of test results and completion of medical decision making process will be conducted by an additional ED providers. TRAVEL OUTSIDE OF THE [place] IN LAST 30 DAYS: No - Related Data Allergies/Adverse Reactions: acetaminophen [From Vicodin] Allergy (Verified 07/09/18 09:15) Migraine hydrocodone [From Vicodin] Allergy (Verified 07/09/18 09:15) Migraine oxycodone Allergy (Verified 07/09/18 09:15) metal Allergy (Severe, Uncoded 07/09/18 09:15) rash Past Medical History - Past Medical History Cardiac Medical History: Reports: Hx Hypercholesterolemia, Hx Hypertension - NO MEDS Denies: Hx Coronary Artery Disease, Hx Heart Attack Pulmonary Medical History: Reports: Hx COPD - inhalers Denies: Hx Asthma, Hx Bronchitis, Hx Pneumonia Neurological Medical History: Denies: Hx Cerebrovascular Accident, Hx Seizures Renal/ Medical History: Denies: Hx Peritoneal Dialysis GI Medical History: Reports: Hx Hiatal Hernia. Denies: Hx Hepatitis, Hx Ulcer Musculoskeltal Medical History: Reports Hx Arthritis Psychiatric Medical History: Reports: Hx Depression Infectious Medical History: Denies: Hx Hepatitis Past Surgical History: Reports: Hx Cholecystectomy, Hx Orthopedic Surgery - Bilateral hips, right knee, Hx Tonsillectomy, Other - Ovarian cysts. Denies: Hx Hysterectomy, Hx Mastectomy, Hx Open Heart Surgery, Hx Pacemaker - Immunizations Hx Diphtheria, Pertussis, Tetanus Vaccination: No Physical Exam - Vital signs Vitals: Temp Pulse Resp BP Pulse Ox 97.9 F 71 18 162/107 H 98 08/03/19 22:53 08/03/19 22:53 08/03/19 22:53 08/03/19 22:53 08/03/19 22:53 Course - Vital Signs Vital signs: Temp Pulse Resp BP Pulse Ox 97.9 F 71 18 162/107 H 98 08/03/19 22:53 08/03/19 22:53 08/03/19 22:53 08/03/19 22:53 08/03/19 22:53 Doctor's Discharge - Discharge Referrals: THI GALDAMEZ MD [Primary Care Provider] - Follow up as needed
[2019-08-03 23:56] LABS: ABSOLUTE EOSINOPHILS # (AUTO) 0.1 10^3/uL (0.0-0.6); ABSOLUTE LYMPHOCYTES (AUTO) 1.3 10^3/uL (0.5-4.7); ABSOLUTE MONOCYTES (AUTO) 0.2 10^3/uL (0.1-1.4); ABSOLUTE NEUT (AUTO) 7.9 10^3/uL (1.7-8.2); BASOPHILS % (AUTO) 0.4 % (0-2); EOSINOPHILS % (AUTO) 0.7 % (0-6); HEMATOCRIT 33.9 % (36.0-47.0); HEMOGLOBIN 11.2 g/dL (12.0-15.5); LYMPHOCYTES % (AUTO) 13.5 % (13-45); MEAN CORPUSCULAR HGB CONC 33.2 g/dL (32.0-36.0); MEAN CORPUSCULAR VOLUME 81 fl (80-97); MONOCYTES % (AUTO) 2.5 % (3-13); PLATELET COUNT 318 10^3/uL (150-450); RED BLOOD COUNT 4.17 10^6/uL (3.72-5.28); RED CELL DISTRIBUTION WIDTH 17.2 % (11.5-14.0); SEGMENTED NEUTROPHILS % (AUTO) 82.9 % (42-78); TOTAL CELLS COUNTED % (AUTO) 100 %; WHITE BLOOD COUNT 9.5 10^3/uL (4.0-10.5)
[2019-08-03 23:59] LABS: ALBUMIN 4.5 g/dL (3.5-5.0); ALKALINE PHOSPHATASE 90 U/L (38-126); ANION GAP 10 (5-19); ASPARTATE AMINO TRANSFERASE 23 U/L (14-36); BILIRUBIN,TOTAL 0.5 mg/dL (0.2-1.3); BLOOD UREA NITROGEN 16 mg/dL (7-20); CALCIUM 9.8 mg/dL (8.4-10.2); CARBON DIOXIDE 27 mmol/L (22-30); CHLORIDE 97 mmol/L (98-107); GLUCOSE 153 mg/dL (75-110); POTASSIUM 3.8 mmol/L (3.6-5.0); TOTAL PROTEIN 8.1 g/dL (6.3-8.2)
[2019-08-04] MEDS ORDERED: HYDROMORPHONE HCL INJ/PF 2 MG/ML AMPULE IV ONE ×3 (00:17→06:34)
[2019-08-04 00:28] LABS: INTERNATIONAL RATION (INR) 1.12; PROTHROMBIN TIME 14.5 SEC (11.4-15.4)
[2019-08-04 00:29] LABS: PARTIAL THROMBOPLASTIN TIME 35.8 SEC (23.5-35.8)
[2019-08-04] MEDS ORDERED: ONDANSETRON HCL INJ/PF 4 MG/2 ML SDV IV ONE (01:27)
[2019-08-04 01:30] LABS: APPEARANCE,URINE CLEAR; BILIRUBIN,URINE NEGATIVE (NEGATIVE); COLOR,URINE YELLOW; GLUCOSE, URINE NEGATIVE (NEGATIVE); KETONES,URINE 20 mg/dL (NEGATIVE); LEUKOCYTE ESTERASE,URINE NEGATIVE (NEGATIVE); NITRITE,URINE NEGATIVE (NEGATIVE); PROTEIN,URINE NEGATIVE (NEGATIVE); URINE SPECIFIC GRAVITY 1.015; UROBILINOGEN,URINE NEGATIVE mg/dL (<2.0)
--- NOTE | 2019-08-04 02:52 | RADIOLOGY REPORT (SQ) ---
CLINICAL INDICATION: RLQ pain; eval hernia. CREAT 0.63. . TECHNIQUE: Contrast enhanced spiral axial CT imaging was obtained of the abdomen and pelvis with multiplanar reconstructions. This exam was performed according to our departmental dose-optimization program, which includes automated exposure control, adjustment of the mA and/or kV according to patient size and/or use of iterative reconstruction techniques. Additional delayed phase imaging COMPARISON: None. CORRELATION: None. FINDINGS: Abdomen: The lung bases demonstrate chronic change. No acute process. The heart is prominent. No evidence of pleural or pericardial fluid. The liver is homogeneous. The gallbladder is surgically absent. The pancreas is unremarkable. The spleen is unremarkable. The adrenals are unremarkable. The kidneys appear grossly normal without evidence of urolithiasis or hydronephrosis. There is no evidence of free air. No free fluid. No bulky adenopathy. Abdominal aorta is nonaneurysmal. Pelvis: The bowel demonstrates dilatation of the small bowel. Distal small bowel and colon are of normal caliber. The bowel extends into the right inguinal hernia. This area is obscured by the artifact from the bilateral hip prostheses but this hernia does appear to be the point of transition.. Opacified proximally. Stomach is distended. Pelvic contents are not secured by the bilateral hip prostheses. The appendix is not convincingly seen. Visualized bones demonstrate age-appropriate osteoarthritis. Fusion of the sacroiliac joints. Bilateral total hip prosthesis. Old posttraumatic change right hemithorax. IMPRESSION: Small bowel obstruction identified secondary to a right inguinal hernia containing a knuckle of distal small bowel. Although this area is obscured by artifact from bilateral hip prostheses, this does appear to be the point of obstruction. Surgical consult is advised.
[2019-08-04] MEDS ORDERED: LIDOCAINE 2% INJ-PF (20 MG/ML) 10 ML AMPUL NEB ONE (04:00)
[2019-08-04] MEDS ORDERED: FAMOTIDINE INJ/PF 20 MG/2 ML SDV IV ONE (05:47)
[2019-08-04 08:12] VITALS: BP 138/92
--- NOTE | 2019-08-04 09:04 | ER Document Report ---
Doctor's Note Notes: 08/04/19 09:03 Transport was here about 8 AM to take the patient to [facility]. She was alert, oriented, vital signs stable, she was stable for transfer.
== END 2019-08-04 08:12 | disposition short-term general hospital (02) ==
LOC: ER 22:39
DX: K40.30 Unilateral inguinal hernia, with obstruction, without gangrene, not specified as recurrent (principal); R10.31 Right lower quadrant pain; R10.33 Periumbilical pain; E78.00 Pure hypercholesterolemia, unspecified; Z11.59 Encounter for screening for other viral diseases; Z90.49 Acquired absence of other specified parts of digestive tract
CPT/HCPCS: 96376; 99285; 96374; 96375; 86900; 86901; 36415; 86850; 83605; 85025; 85610; 85730; 80053; 81001; 74177; U0003; J1200; J2270; J1170; J2405 ×2; S0028; C9803; 87635